=== PATIENT | male | born 1960 | race African-American/Black ===

== ENCOUNTER 2019-10-08 06:02 | Emergency (ER) | payer SELFPAY ==
[2019-10-08] MEDS ORDERED: NA CHLORIDE 0.9% 1,000 ML ONE (06:32)
[2019-10-08 06:47] LABS: Absolute Lymphocytes (CBC) 1.5 K/uL (0.7-4.9); Basophils % 0.3 % (0-1.3); Hematocrit 41.4 % (39.6-49.0); MPV 8.4 fL (7.6-11.3); RBC Red Blood Cell Count 4.53 M/uL (4.33-5.43)
[2019-10-08 06:55] LABS: Protime INR 1.04
[2019-10-08 07:16] LABS: ALT/SGPT 73 U/L (12-78); AST/SGOT 104 U/L (15-37); Albumin 4.1 g/dL (3.4-5.0); Alkaline Phosphatase 57 U/L (45-117); BUN Blood Urea Nitrogen 16 mg/dL (7-18); Bicarbonate 27 mmol/L (21-32); Bilirubin Direct 0.2 mg/dL (0-0.2); Bilirubin Total 0.5 mg/dL (0.2-1.0); Glucose Level 111 mg/dL (74-106); Lipase 194 U/L (73-393); Magnesium 2.8 mg/dL (1.8-2.4); NT PRO-BNP 1745 pg/mL (<125); Potassium 3.4 mmol/L (3.5-5.1); Protein, Total 7.9 g/dL (6.4-8.2); Sodium Level 143 mmol/L (136-145); Troponin (Emerg Dept Use Only) < 0.02 ng/mL (0.0-0.045)
--- NOTE | 2019-10-08 07:37 | RAD REPORT ---
EXAM DESCRIPTION: CT - Head Brain Wo Cont - 10/08/2019 7:05 am CLINICAL HISTORY: Head trauma, headache, laceration to right cheek and periorbital region COMPARISON: None. TECHNIQUE: Axial 5 mm thick images of the head were obtained without IV contrast. All CT scans are performed using dose optimization technique as appropriate and may include automated exposure control or mA/KV adjustment according to patient size. FINDINGS: No intracranial hemorrhage, mass, edema or shift of mid-line structures. No acute infarcti on changes seen. No abnormal extra-axial fluid collections. Ventricles are normal. No acute intracran ial finding seen. Mastoid air cells and visualized portions of the paranasal sinuses are clear. No acute bony findings. IMPRESSION: Negative non-contrast CT head examination for acute or significant finding.
--- NOTE | 2019-10-08 08:10 | RAD REPORT ---
EXAM DESCRIPTION: CT - Abdomen Pelvis Wo Contrast - 10/08/2019 7:53 am CLINICAL HISTORY: upper abd pain, anorexia COMPARISON: No comparisons TECHNIQUE: Axial [address] imaging of the abdomen and pelvis was performed without IV contrast. No IV contrast was given because of allergy, abnormal renal function, patient refusal or physician re quest. No oral contrast given. All CT scans are performed using dose optimization technique as appropriate and may include automated exposure control or mA/KV adjustment according to patient size. FINDINGS: No acute pleural or parenchymal lung base finding. Cardiomegaly is present with a moderate ly large pericardial effusion. Heart is only partially imaged. The liver, spleen and pancreas show no suspicious findings on non-contrast imaging. Gallbladder and b iliary tree are also without suspicious finding. Gallstones can be occult on CT imaging. No hydronephrosis or suspicious renal mass. No obstructing or nonobstructing calculi. No significant adrenal finding. Isodense renal masses and pyelonephritis cannot be excluded in the absence of IV con trast. The urinary bladder is without significant finding. No gastric dilatation or gastric wall thickening. No acute small bowel finding identifiable. The appe ndix is not clearly defined. No direct or indirect evidence for appendicitis. Much of the colon is fu lly decompressed with no lumen content. There is questionable wall thickening at the splenic flexure, proximal descending colon and in the transverse colon. Cecum and ascending colon are fully decompres sed and difficult to evaluate. No free air, free fluid or pneumatosis. There is a mild congested or edematous appearance to the pe ritoneal and retroperitoneal fatty tissues. Patient has a minimal fluid retention in the subcutaneous fatty tissues. No mass or bulky lymphadenopathy. No suspicious bony findings. IMPRESSION: No obstruction, free air or surgically emergent finding. Patient has a mild petty diverticulosis. There are questionable areas of wall thickening involving much of the colon. Colon assessment is limited in the absence of contrast in the absence bowel content th roughout much of the colon. Colitis would be a consideration given the findings and limitations of the study. No stomach or small bowel abnormality. Appendicitis is not suspected. Patient has a mild fluid retention pattern in the subcutaneous fatty tissues. Cardiomegaly is present with a moderate pericardial effusion. Full assessment is limited is the absence of IV contrast.
--- NOTE | 2019-10-08 08:49 | EDPHYS ---
Physician Documentation [facility] Name: Cristopher Dee Age: 59 yrs Sex: Male : 1960 Arrival Date: 10/08/2019 Time: 06:03 Bed 20 Private MD: ED Physician Joseph Piper HPI: 10/08 06:37 This 59 yrs old Black Male presents to ER via Unassigned with complaints of Cant eat or kb Drink. 06:37 The patient presents with generalized weakness. Onset: The symptoms/episode kb began/occurred last week. Context: occurred at home. Modifying factors: The symptoms are alleviated by nothing, the symptoms are aggravated by nothing. Associated signs and symptoms: Pertinent positives: anorexia. Severity of symptoms: At their worst the symptoms were moderate in the emergency department the symptoms are unchanged. Patient's baseline: Neuro: alert and fully oriented, Motor: no deficits, Ambulation: walks without assistance, Speech: normal. The patient has not experienced similar symptoms in the past. The patient has not recently seen a physician. Pt reports he has not eaten or drank anything in a week. Denies abd pain, n/v/d. States "I just haven't had anything. I don't know why." States he has felt weak and this morning he fell. Denies LOC. Reports history of depression only, but doesn't take his medication that he is prescribed. . Historical: - Allergies: 06:42 No Known Allergies; ca1 - PMHx: 06:42 Depression; Hypertension; Thyroid problem; ca1 - Immunization history:: Adult Immunizations up to date, Pneumococcal vaccine is not up to date, Flu vaccine is not up to date. - Social history:: Smoking status: Patient/guardian denies using tobacco. - Ebola Screening: : Patient negative for fever greater than or equal to 101.5 degrees Fahrenheit, and additional compatible Ebola Virus Disease symptoms Patient denies exposure to infectious person Patient denies travel to an Ebola-affected area in the 21 days before illness onset No symptoms or risks identified at this time. ROS: 06:37 Constitutional: Negative for fever, chills, and weight loss, ENT: Negative for injury, kb pain, and discharge, Neck: Negative for injury, pain, and swelling, Cardiovascular: Negative for chest pain, palpitations, and edema, Respiratory: Negative for shortness of breath, cough, wheezing, and pleuritic chest pain, Back: Negative for injury and pain, MS/Extremity: Negative for injury and deformity. 06:37 Abdomen/GI: Positive for anorexia, Negative for abdominal pain, nausea, vomiting, and diarrhea. 06:37 Skin: Positive for abrasion(s), of the forehead and right cheek. 06:37 Neuro: Positive for weakness. Exam: 06:37 Constitutional: This is a well developed, well nourished patient who is awake, alert, kb and in no acute distress. Chest/axilla: Normal chest wall appearance and motion. Nontender with no deformity. No lesions are appreciated. Cardiovascular: Regular rate and rhythm with a normal S1 and S2. No gallops, murmurs, or rubs. Normal PMI, no JVD. No pulse deficits. Respiratory: Lungs have equal breath sounds bilaterally, clear to auscultation and percussion. No rales, rhonchi or wheezes noted. No increased work of breathing, no retractions or nasal flaring. Back: No spinal tenderness. No costovertebral tenderness. Full range of motion. MS/ Extremity: Pulses equal, no cyanosis. Neurovascular intact. Full, normal range of motion. Neuro: Awake and alert, GCS 15, oriented to person, place, time, and situation. Cranial nerves II-XII grossly intact. Motor strength 5/5 in all extremities. Sensory grossly intact. Cerebellar exam normal. Normal gait. 06:37 Head/face: Noted is no obvious of injury or deformity except abrasion(s), that are mild, of the forehead and right cheek. 06:37 Abdomen/GI: Inspection: abdomen appears normal, Bowel sounds: normal, in all quadrants, Palpation: soft, in all quadrants, moderate abdominal tenderness, in the right upper quadrant and left upper quadrant. Vital Signs: 06:12 BP 130 / 107; Pulse 90; Resp 19 S; Pulse Ox 100% on R/A; Weight 68.04 kg (R); Height 5 ca1 ft. 8 in. (172.72 cm) (R); Pain 5/10; 07:00 Temp 97.7; sg 10:28 BP 150 / 97; Pulse 79; Resp 18; Temp 97.7; Pulse Ox 100% on R/A; sg 06:12 Body Mass Index 22.81 (68.04 kg, 172.72 cm) ca1 MDM: 06:11 Patient medically screened. kb 06:36 Data reviewed: vital signs, nurses notes. Data interpreted: Pulse oximetry: on room air kb is 100 %. Interpretation: normal. 08:42 Counseling: I had a detailed discussion with the patient and/or guardian regarding: the kb historical points, exam findings, and any diagnostic results supporting the discharge/admit diagnosis, lab results, radiology results, the need for further work-up and treatment in the hospital. 08:45 Physician consultation: Mark Russo DO was contacted at 08:45, regarding admission, kb to the telemetry unit. patient's condition, and will see patient in ED, shortly. 09:17 ED course: Dr Russo requests transfer due to large pericardial effusion. We have no kb echo available and no interventions available for pericardial effusion if needed. 09:29 ED course: Gurpreet Correa (hospitalist for [facility]) accepted pt for transfer. . kb 10/08 06:17 Order name: Basic Metabolic Panel; Complete Time: 07:17 kb 10/08 06:17 Order name: CBC with Diff; Complete Time: 06:55 kb 10/08 06:17 Order name: LFT's; Complete Time: 07:17 kb 10/08 06:17 Order name: Magnesium; Complete Time: 07:17 kb 10/08 06:17 Order name: NT PRO-BNP; Complete Time: 07:17 kb 10/08 06:17 Order name: PT-INR; Complete Time: 07:08 kb 10/08 06:17 Order name: Troponin (emerg Dept Use Only); Complete Time: 07:17 kb 10/08 06:17 Order name: Lipase; Complete Time: 07:17 kb 10/08 06:23 Order name: CT Head Brain wo Cont; Complete Time: 07:38 kb 10/08 07:18 Order name: CT Abd/Pelvis - Without Contrast; Complete Time: 08:12 kb 10/08 08:14 Order name: Chest Single View XRAY; Complete Time: 10:52 kb 10/08 06:17 Order name: EKG; Complete Time: 06:18 kb 10/08 06:17 Order name: Cardiac monitoring; Complete Time: 06:37 kb 10/08 06:17 Order name: EKG - Nurse/Tech; Complete Time: 06:37 kb 10/08 06:17 Order name: IV Saline Lock; Complete Time: 06:37 kb 10/08 06:17 Order name: Labs collected and sent; Complete Time: 06:37 kb 10/08 06:17 Order name: O2 Per Protocol; Complete Time: 06:37 kb 10/08 06:17 Order name: O2 Sat Monitoring; Complete Time: 06:37 kb 10/08 08:14 Order name: EKG; Complete Time: 08:15 kb 10/08 08:14 Order name: EKG - Nurse/Tech; Complete Time: 08:28 kb Administered Medications: 06:25 Drug: NS 0.9% 1000 ml Route: IV; Rate: 1000 ml; Site: right antecubital; ca1 07:30 Follow up: Response: No adverse reaction; IV Status: Completed infusion; IV Intake: sg 1000ml 09:30 Drug: Tetanus-Diphtheria Toxoid Adult 0.5 ml {Brusher Machine: videoNEXT. Exp: 09/05/2021. Lot #: [id number]. } Route: IM; Site: right deltoid; 10:33 Follow up: Response: No adverse reaction sg 10:33 Drug: Potassium Chloride 20 mEq Route: PO; sg 10:52 Follow up: Response: No adverse reaction Disposition: 10/09 07:28 Co-signature as Attending Physician, Joseph Piper MD I agree with the assessment and kdr plan of care. Disposition: 10/08/19 09:[address] [facility]. Diagnosis are Pericardial effusion (noninflammatory), Dehydration, Colitis. - Reason for transfer: Higher level of care. - Accepting physician is Dr Ernandez. - Condition is Stable. - Problem is new. - Symptoms are unchanged. Signatures: Dispatcher [employer] Nelli Azul, BETO GONGORA-Heriberto Arriaag RN Joseph Barrera MD MD kdr Acob, Cheryl RN RN ca1 Corrections: (The following items were deleted from the chart) 10/08 08:56 08:47 Hospitalization Ordered by Mark Russo DO for Observation. Preliminary kb diagnosis is Weakness; Colitis; Pericardial effusion (noninflammatory); Renal insufficiency. Bed requested for Telemetry/MedSurg (observation). Status is Observation. Condition is Stable. Problem is new. Symptoms are unchanged. UTI on Admission? No. kb 11:30 09:34 10/08/2019 09:[address] [facility]. Diagnosis is sg Pericardial effusion (noninflammatory); Dehydration; Colitis. Reason for transfer: Higher level of care. Accepting physician is Dr Ernandez. Condition is Stable. Problem is new. Symptoms are unchanged. kb
--- NOTE | 2019-10-08 08:49 | ER ---
Nurse's Notes [facility] Name: Cristopher Dee Age: 59 yrs Sex: Male : 1960 Arrival Date: 10/08/2019 Time: 06:03 Bed 20 Private MD: Diagnosis: Pericardial effusion (noninflammatory);Dehydration;Colitis Presentation: 10/08 06:12 Presenting complaint: Patient states: "couple days I did not eat or drink and I don't ca1 know why. Right now I am very hungry and very thirsty" Pt c/o abdl pain, upper R and L. 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 Pt denies tripping and father at bedside states, "I found him on the floor". When asked about the fall, pt denies LOC and states he just felt very weak. Pt denies N/V/F. Reports MHx of Depression and non-compliance to medications. Transition of care: patient was not received from another setting of care. Onset of symptoms was October 08, 2019. Risk Assessment: Do you want to hurt yourself or someone else? Patient reports no desire to harm self or others. Initial Sepsis Screen: Does the patient meet any 2 criteria? No. Patient's initial sepsis screen is negative. Does the patient have a suspected source of infection? No. Patient's initial sepsis screen is negative. Care prior to arrival: None. 06:12 Method Of Arrival: Wheelchair ca1 06:12 Acuity: FRANCHESCA 3 ca1 Triage Assessment: 06:12 General: Appears in no apparent distress. uncomfortable, slender, Behavior is anxious, ca1 crying, Reports fatigue for >3 days. Pain: Complains of pain in right upper quadrant and left upper quadrant Pain currently is 5 out of 10 on a pain scale. Is continuous. EENT: No deficits noted. No signs and/or symptoms were reported regarding the EENT system. Neuro: Level of Consciousness is awake, alert, obeys commands, Oriented to person, place, time, situation, Appropriate for age. Cardiovascular: Heart tones S1 S2 present Capillary refill < 3 seconds Patient's skin is warm and dry. Respiratory: Airway is patent Respiratory effort is even, unlabored, Respiratory pattern is regular, symmetrical, Breath sounds are clear bilaterally. GI: Abdomen is flat, non-distended, Bowel sounds present X 4 quads. Abd is soft X 4 quads Abdomen is tender to palpation in right upper quadrant and left upper quadrant. : No deficits noted. No signs and/or symptoms were reported regarding the genitourinary system. Derm: Skin is healthy with good turgor, Skin is pink, warm \\T\\ dry. Musculoskeletal: Circulation, motion, and sensation intact. Capillary refill < 3 seconds. Injury Description: Abrasion sustained to forehead, right cheek and right pentecostalism is dirty, was sustained less than 30 minutes ago. Historical: - Allergies: 06:42 No Known Allergies; ca1 - PMHx: 06:42 Depression; Hypertension; Thyroid problem; ca1 - Immunization history:: Adult Immunizations up to date, Pneumococcal vaccine is not up to date, Flu vaccine is not up to date. - Social history:: Smoking status: Patient/guardian denies using tobacco. - Ebola Screening: : Patient negative for fever greater than or equal to 101.5 degrees Fahrenheit, and additional compatible Ebola Virus Disease symptoms Patient denies exposure to infectious person Patient denies travel to an Ebola-affected area in the 21 days before illness onset No symptoms or risks identified at this time. Screenin:46 Abuse screen: Denies threats or abuse. Denies injuries from another. Nutritional ca1 screening: No deficits noted. Tuberculosis screening: No symptoms or risk factors identified. Fall Risk Fall in past 12 months (25 points). IV access (20 points). Assessment: 06:46 Reassessment: SEE TRIAGE ASSESSMENT. ca1 07:02 Reassessment: Patient appears in no apparent distress at this time. Patient and/or sg family updated on plan of care and expected duration. Pain level reassessed. pt requesting water, ERP instructs pt to wait for results of CT scan prior to eating or drinking, more glycerin swab applied to pt for dry mouth, pt stated understanding. 09:54 Reassessment: Patient appears in no apparent distress at this time. pt updated attempt sg to call report to receiving nurse, instructed to call back in 5 mins while they assign a nurse for the pt, pt stated understanding, will call back to give report. 10:30 Reassessment: Patient appears in no apparent distress at this time. Spoke with sg Elisa COBIAN for pt report, Elisa requests a call back to finish report, pt to be transferred. 11:18 Reassessment:. sg Vital Signs: 06:12 BP 130 / 107; Pulse 90; Resp 19 S; Pulse Ox 100% on R/A; Weight 68.04 kg (R); Height 5 ca1 ft. 8 in. (172.72 cm) (R); Pain 5/10; 07:00 Temp 97.7; sg 10:28 BP 150 / 97; Pulse 79; Resp 18; Temp 97.7; Pulse Ox 100% on R/A; sg 06:12 Body Mass Index 22.81 (68.04 kg, 172.72 cm) ca1 ED Course: 06:03 Patient arrived in ED. ds1 06:07 Nelli Celis [facility]C [facility]. kb 06:07 Joseph Piper MD is Attending Physician. kb 06:10 Obdulia Shell, RN is Primary Nurse. ca1 06:12 Arm band placed on right wrist. ca1 06:12 EKG completed in triage. Results shown to MD. ca1 06:20 No provider procedures requiring assistance completed. Inserted saline lock: 22 gauge ca1 in right antecubital area, using aseptic technique. Blood collected. 06:42 Triage completed. ca1 06:46 Patient has correct armband on for positive identification. Bed in low position. Call ca1 light in reach. Side rails up X2. radiation monitor on. Pulse ox on. NIBP on. Warm blanket given. 07:07 CT Head Brain wo Cont In Process Unspecified. EDMS 07:34 Primary Nurse role handed off by Obdulia Shell, ARANZA bd 07:42 Heriberto Fernandez, RN is Primary Nurse. sg 07:53 CT completed. Patient tolerated procedure well. Patient moved back from CT. bq 07:53 CT Abd/Pelvis - Without Contrast In Process Unspecified. EDMS 08:31 Chest Single View XRAY In Process Unspecified. EDMS 08:46 Mark Russo DO is Hospitalizing Provider. kb 09:04 Wound care: to abrasion, located on forehead, right eye and right cheek was cleaned sg with soap and water, dressed with Neosporin. 11:30 Patient transferred, IV remains in place. iw Administered Medications: 06:25 Drug: NS 0.9% 1000 ml Route: IV; Rate: 1000 ml; Site: right antecubital; ca1 07:30 Follow up: Response: No adverse reaction; IV Status: Completed infusion; IV Intake: sg 1000ml 09:30 Drug: Tetanus-Diphtheria Toxoid Adult 0.5 ml {Deaf Interpreter: Xierkang. Exp: sg 09/05/2021. Lot #: [id number]. } Route: IM; Site: right deltoid; 10:33 Follow up: Response: No adverse reaction sg 10:33 Drug: Potassium Chloride 20 mEq Route: PO; sg 10:52 Follow up: Response: No adverse reaction sg Intake: 07:30 IV: 1000ml; Total: 1000ml. sg Outcome: 08:47 Decision to Hospitalize by Provider. kb 09:34 ER care complete, transfer ordered by MD. kb 11:20 Transferred by ground EMS to [facility], Transfer form completed. sg 11:20 Condition: stable 11:20 Instructed on the need for transfer, Demonstrated understanding of instructions, report given to Jhon COBIAN 11:30 Patient left the ED. sg Signatures: Dispatcher [employer] EDMS Nelli Celis, MANAGER BANQUET-C MANAGER BANQUET-Ckb Serenity Freeman Steven, RN RN sg Margarita Garcia Demi ds1 Jana Paula, RN ARANZA Obdulia Shell RN RN ca1
[2019-10-08] MEDS ORDERED: TETANUS & DIPHTHERIA TOX,ADULT 0.5 ML VIAL ONE (10:00)
[2019-10-08] MEDS ORDERED: POTASSIUM CL SA 10 MEQ TAB PO ONE (10:40)
--- NOTE | 2019-10-08 10:49 | RAD REPORT ---
EXAM DESCRIPTION: RAD - Chest Single View - 10/08/2019 8:34 am CLINICAL HISTORY: Pericardial effusion, abdominal pain, shortness of breath COMPARISON: None. TECHNIQUE: AP portable chest image was obtained 0830 hours . FINDINGS: No focal lung parenchymal process seen. Interstitial pattern is within range of normal. Tr achea is midline. Cardiac silhouette is enlarged. Earlier CT study shows pericardial effusion. Patien t has a component of cardiomegaly as well. No vascular engorgement or other findings for failure/ vol ume overload. No measurable pleural effusion and no pneumothorax. No acute bony abnormality seen. No acute aortic findings suspected. IMPRESSION: Cardiomegaly with pericardial effusion. No failure or volume overload findings. No focal lung process.
[2019-10-08 11:37] VITALS: O2SAT 100
[2019-10-08 11:38] VITALS: TEMP 97.7
[2019-10-08 11:40] VITALS: BP 150/97
--- NOTE | 2019-10-08 18:36 | EKG ---
Test Date: 2019-10-08 Test Time: 08:24:31 Graphic Manager: SWG MEASUREMENT RESULTS: Intervals: Rate: 83 NH: 150 QRSD: 174 QT: 470 QTc: 552 [place]: P: 50 NH: 150 QRS: 76 T: -50 INTERPRETIVE STATEMENTS: Normal sinus rhythm Left bundle branch block Abnormal ECG No previous ECG available for comparison Electronically Signed On 10-08-19 18:35:12 PATENT AGENT by Tommy West
--- NOTE | 2019-10-08 18:36 | EKG ---
Test Date: 2019-10-08 Test Time: 06:20:47 Supervisor Case Loading: LIANNA MEASUREMENT RESULTS: Intervals: Rate: 88 ID: [id number] QT: 452 QTc: 546 [place]: P: ID: [id number] T: -12 INTERPRETIVE STATEMENTS: Wide QRS rhythm Left bundle branch block Abnormal ECG No previous ECG available for comparison Electronically Signed On 10-08-19 18:35:15 MANAGER LOSS PREVENTION by Tommy West
== END 2019-10-08 11:30 | disposition short-term general hospital (02) ==
LOC: ER 06:02
DX: I31.3 Pericardial effusion (noninflammatory) (principal); E86.0 Dehydration; K52.9 Noninfective gastroenteritis and colitis, unspecified; I10 Essential (primary) hypertension; Z23 Encounter for immunization
CPT/HCPCS: 36415; 70450; 71045; 74176; 80048; 80076; 83690; 83735; 83880; 84484; 85025; 85610; 90471; 90714; 93005; 96360; 99285; J7030

== ENCOUNTER 2021-03-28 17:07 | Emergency (ER) | payer OTHER, SELFPAY ==
--- OUTSIDE RECORDS SUMMARY | 2021-03-28 17:11 | XMS REPORT | Continuity of Care Document ---
:1960 Author Organization [facility] t Address [address] [place] [address] Care Team Providers Name Role Phone Urbano RODRIGUEZ Attending Clinician Unavailable ANI ADAM Admitting Clinician Unavailable Problems Condition Condition Condition Status Onset Resolution Last Treating Co mments Source Name Details Category Date Date Treatment Clinician Date Pericardia Pericardia Disease Active [facility]usion l effusion 10-11 [facility] - 00:00: Medical 00 Anza Dehydratio Dehydratio Disease Active [facility] Allergies, Adverse Reactions, Alerts This patient has no known allergies or adverse reactions. Social History Social Habit Start Date Stop Date Quantity Comments Source Sex Assigned At [facility] Medications Ordered Filled Start Stop Current Ordering Indication Dosage Frequency Signature Comments Components Source Medication Medication Date Date Medication? Clinician (SIG) Name Name levothyroxi 2020- No 150ug Take [address] [facility] 10-25 tablet [facility] - (SYNTHROID, 00:00: 23:59 (150 mcg M edical LEVOTHROID) 00 :00 total) by [facility] ter 150 MCG mouth tablet Every morning on an empty stomach. metoprolol 2020- No 25mg QD Take 1 [facility] (TOPROL-XL) 10-25 tablet (25 L [facility] - 25 MG 24 hr 00:00: 23:59 mg total) Medical tablet 00 :00 by mouth Center daily. Procedures This patient has no known procedures. Plan of Care Planned Activity Planned Date Details Comments Source Future Scheduled 2021-06-08 INFLUENZA VACCINE [facility] - Test 00:00:00 (Season Ended) [code Medical Center = INFLUENZA VACCINE (Season Ended)] Future Scheduled 2020-10-[address] [facility] - Test 00:00:00 (12+) [code = Medical Center DEPRESSION SCREENING (12+)] Future Scheduled 2017-08-[address] [facility] [facility] - Test 00:00:00 WELLNESS (YEAR 2 or Medical Center FIRST YEAR if no IPPE) [code = MEDICARE ANNUAL WELLNESS (YEAR 2 or FIRST YEAR if no IPPE)] Future Scheduled 2012 SHINGLES VACCINES ([address] [facility] - Test 00:00:00 of 2) [code = Medical Center SHINGLES VACCINES (1 of 2)] Future Scheduled [address] [facility] Test 00:00:00 (procedure) [code = [facility] [id number]] Future Scheduled 1981 DTAP/TDAP/TD VACCINES [facility] Test 00:[facility]:00 (1 - Tdap) [code = Medical C enter DTAP/TDAP/TD VACCINES (1 - Tdap)] Future Scheduled 1980 HEPATITIS C [facility]CREENING [facility] - Test 00:00:00 [code = HEPATITIS C Medical Center SCREENING] Future Scheduled [address] [facility] - Test 00:00:00 malignant neoplasm of Medica l Center colon (procedure) [code = 632917741] Results Test Description Test Time Test Comments Results Result Comments Source T4, FREE 2019-10-24 10:35:00 Test Item Value Reference Range Interpretation Comme nts FREE T4 (BEAKER) (test code = 655) 0.87 ng/dL 0.70-1.48 Senior Production Manager ID - NTPBASIC METABOLIC [id number] 07:35:00 Test Item Value Reference Range Interpretation Comments SODIUM (BEAKER) 141 meq/L 136-145 (test code = 381) POTASSIUM (BEAKER) 3.7 meq/L 3.5-5.1 (test code = 379) CHLORIDE (BEAKER) 110 meq/L 98-107 H (test code = 382) CO2 (BEAKER) (test 27 meq/L 22-29 code = 355) BLOOD UREA NITROGEN 15 mg/dL 7-21 (BEAKER) (test code = 354) CREATININE (BEAKER) 1.11 mg/dL 0.57-1.25 (test code = 358) GLUCOSE RANDOM 67 mg/dL 70-105 L (BEAKER) (test code = 652) CALCIUM (BEAKER) 8.1 mg/dL 8.4-10.2 L (test code = 697) EGFR (BEAKER) (test 83 mL/min/1.73 ESTIMA JAMIE GFR IS code = 1092) sq m NOT ACCURATE CREATININE CLEARANCE IN PREDICTING GLOMERULAR FILTRATION RATE . ESTIMATED GFR I S NOT APPLICABLE FOR DIALYSIS PATIEN TS. Senior Production Manager ID - MARY LOU WCBC (HEMOGRAM ONLY)2019-10-24 06:50:00 Test Item Value Reference Range Interpretation Comments WHITE BLOOD CELL COUNT (BEAKER) 3.6 K/ L 3.5-10.5 (test code = 775) RED BLOOD CELL COUNT (BEAKER) 3.01 M/ L 4.63-6.08 L (test code = 761) HEMOGLOBIN (BEAKER) (test code = 9.1 GM/DL 13.7-17.5 L 410) HEMATOCRIT (BEAKER) (test code = 28.3 % 40.1-51.0 L 411) MEAN CORPUSCULAR VOLUME (BEAKER) 94.0 fL 79.0-92.2 H (test code = 753) MEAN CORPUSCULAR HEMOGLOBIN 30.2 pg 25.7-32.2 (BEAKER) (test code = 751) MEAN CORPUSCULAR HEMOGLOBIN CONC 32.2 GM/DL 32.3-36.5 L (BEAKER) (test code = 752) RED CELL DISTRIBUTION WIDTH 15.8 % 11.6-14.4 H (BEAKER) (test code = 412) PLATELET COUNT (BEAKER) (test 248 K/CU MM 150-450 code = 756) MEAN PLATELET VOLUME (BEAKER) 9.5 fL 9.4-12.4 (test code = 754) NUCLEATED RED BLOOD CELLS 0 /100 WBC 0-0 (BEAKER) (test code = 413) BASIC METABOLIC [id number] 07:15:00 Test Item Value Reference Range Interpretation Comments SODIUM (BEAKER) 139 meq/L 136-145 (test code = 381) POTASSIUM (BEAKER) 3.9 meq/L 3.5-5.1 (test code = 379) CHLORIDE (BEAKER) 108 meq/L 98-107 H (test code = 382) CO2 (BEAKER) (test 27 meq/L 22-29 code = 355) BLOOD UREA NITROGEN 13 mg/dL 7-21 (BEAKER) (test code = 354) CREATININE (BEAKER) 1.06 mg/dL 0.57-1.25 (test code = 358) GLUCOSE RANDOM 62 mg/dL 70-105 L (BEAKER) (test code = 652) CALCIUM (BEAKER) 7.8 mg/dL 8.4-10.2 L (test code = 697) EGFR (BEAKER) (test 87 mL/min/1.73 ESTIMA JAMIE GFR IS code = 1092) sq m NOT ACCURATE CREATININE CLEARANCE IN PREDICTING GLOMERULAR FILTRATION RATE . ESTIMATED GFR I S NOT APPLICABLE FOR DIALYSIS PATIEN TS. Senior Production Manager ID - PIAYA LCBC (HEMOGRAM ONLY)2019-10-23 06:28:00 Test Item Value Reference Range Interpretation Comments WHITE BLOOD CELL COUNT (BEAKER) 3.5 K/ L 3.5-10.5 (test code = 775) RED BLOOD CELL COUNT (BEAKER) 3.17 M/ L 4.63-6.08 L (test code = 761) HEMOGLOBIN (BEAKER) (test code = 9.5 GM/DL 13.7-17.5 L 410) HEMATOCRIT (BEAKER) (test code = 30.0 % 40.1-51.0 L 411) MEAN CORPUSCULAR VOLUME (BEAKER) 94.6 fL 79.0-92.2 H (test code = 753) MEAN CORPUSCULAR HEMOGLOBIN 30.0 pg 25.7-32.2 (BEAKER) (test code = 751) MEAN CORPUSCULAR HEMOGLOBIN CONC 31.7 GM/DL 32.3-36.5 L (BEAKER) (test code = 752) RED CELL DISTRIBUTION WIDTH 15.8 % 11.6-14.4 H (BEAKER) (test code = 412) PLATELET COUNT (BEAKER) (test 235 K/CU MM 150-450 code = 756) MEAN PLATELET VOLUME (BEAKER) 9.3 fL 9.4-12.4 L (test code = 754) NUCLEATED RED BLOOD CELLS 0 /100 WBC 0-0 (BEAKER) (test code = 413) BASIC METABOLIC [id number] 06:21:00 Test Item Value Reference Range Interpretation Comments SODIUM (BEAKER) 141 meq/L 136-145 (test code = 381) POTASSIUM (BEAKER) 4.0 meq/L 3.5-5.1 (test code = 379) CHLORIDE (BEAKER) 109 meq/L 98-107 H (test code = 382) CO2 (BEAKER) (test 27 meq/L 22-29 code = 355) BLOOD UREA NITROGEN 15 mg/dL 7-21 (BEAKER) (test code = 354) CREATININE (BEAKER) 1.34 mg/dL 0.57-1.25 H (test code = 358) GLUCOSE RANDOM 77 mg/dL 70-105 (BEAKER) (test code = 652) CALCIUM (BEAKER) 8.1 mg/dL 8.4-10.2 L (test code = 697) EGFR (BEAKER) (test 67 mL/min/1.73 ESTIMA JAMIE GFR IS code = 1092) sq m NOT ACCURATE CREATININE CLEARANCE IN PREDICTING GLOMERULAR FILTRATION RATE . ESTIMATED GFR I S NOT APPLICABLE FOR DIALYSIS PATIEN TS. Senior Production Manager ID - SHANE MCBC (HEMOGRAM ONLY)2019-10-19 05:32:00 Test Item Value Reference Range Interpretation Comments WHITE BLOOD CELL COUNT (BEAKER) 3.7 K/ L 3.5-10.5 (test code = 775) RED BLOOD CELL COUNT (BEAKER) 3.08 M/ L 4.63-6.08 L (test code = 761) HEMOGLOBIN (BEAKER) (test code = 9.3 GM/DL 13.7-17.5 L 410) HEMATOCRIT (BEAKER) (test code = 29.0 % 40.1-51.0 L 411) MEAN CORPUSCULAR VOLUME (BEAKER) 94.2 fL 79.0-92.2 H (test code = 753) MEAN CORPUSCULAR HEMOGLOBIN 30.2 pg 25.7-32.2 (BEAKER) (test code = 751) MEAN CORPUSCULAR HEMOGLOBIN CONC 32.1 GM/DL 32.3-36.5 L (BEAKER) (test code = 752) RED CELL DISTRIBUTION WIDTH 15.6 % 11.6-14.4 H (BEAKER) (test code = 412) PLATELET COUNT (BEAKER) (test 238 K/CU MM 150-450 code = 756) MEAN PLATELET VOLUME (BEAKER) 9.4 fL 9.4-12.4 (test code = 754) NUCLEATED RED BLOOD CELLS 0 /100 WBC 0-0 (BEAKER) (test code = 413) [id number] 15:31:00 Test Item Value Reference Range Interpretation Comments T3 TOTAL (BEAKER) (test code = 656) < ng/dL 48-159 L T3, [id number] 15:31:00 Test Item Value Reference Range Interpretation Comments T3 FREE (BEAKER) (test code = 908) < pg/mL 1.71-3.71 L T4, [id number] 06:48:00 Test Item Value Reference Range Interpretation Comments FREE T4 (BEAKER) (test code = 655) 0.44 ng/dL 0.70-1.48 L [id number] 08:21:00 Test Item Value Reference Range Interpretation Comments MAGNESIUM (BEAKER) (test code = 2.4 mg/dL 1.6-2.6 627) BASIC METABOLIC [id number] 08:21:00 Test Item Value Reference Range Interpretation Comments SODIUM (BEAKER) 138 meq/L 136-145 (test code = 381) POTASSIUM (BEAKER) 3.6 meq/L 3.5-5.1 (test code = 379) CHLORIDE (BEAKER) 107 meq/L 98-107 (test code = 382) CO2 (BEAKER) (test 25 meq/L 22-29 code = 355) BLOOD UREA NITROGEN 11 mg/dL 7-21 (BEAKER) (test code = 354) CREATININE (BEAKER) 1.21 mg/dL 0.57-1.25 (test code = 358) GLUCOSE RANDOM 61 mg/dL 70-105 L (BEAKER) (test code = 652) CALCIUM (BEAKER) 8.4 mg/dL 8.4-10.2 (test code = 697) EGFR (BEAKER) (test 75 mL/min/1.73 ESTIMA JAMIE GFR IS code = 1092) sq m NOT ACCURATE CREATININE CLEARANCE IN PREDICTING GLOMERULAR FILTRATION RATE . ESTIMATED GFR I S NOT APPLICABLE FOR DIALYSIS PATIEN TS. CBC W/PLT COUNT & AUTO [id number] 08:20:00 Test Item Value Reference Range Interpretation Comments WHITE BLOOD CELL COUNT (BEAKER) 4.0 K/ L 3.5-10.5 (test code = 775) RED BLOOD CELL COUNT (BEAKER) 3.61 M/ L 4.63-6.08 L (test code = 761) HEMOGLOBIN (BEAKER) (test code = 10.7 GM/DL 13.7-17.5 L 410) HEMATOCRIT (BEAKER) (test code = 32.8 % 40.1-51.0 L 411) MEAN CORPUSCULAR VOLUME (BEAKER) 90.9 fL 79.0-92.2 (test code = 753) MEAN CORPUSCULAR HEMOGLOBIN 29.6 pg 25.7-32.2 (BEAKER) (test code = 751) MEAN CORPUSCULAR HEMOGLOBIN CONC 32.6 GM/DL 32.3-36.5 (BEAKER) (test code = 752) RED CELL DISTRIBUTION WIDTH 15.2 % 11.6-14.4 H (BEAKER) (test code = 412) PLATELET COUNT (BEAKER) (test 207 K/CU MM 150-450 code = 756) MEAN PLATELET VOLUME (BEAKER) 9.6 fL 9.4-12.4 (test code = 754) NUCLEATED RED BLOOD CELLS 0 /100 WBC 0-0 (BEAKER) (test code = 413) NEUTROPHILS RELATIVE PERCENT 42 % (BEAKER) (test code = 429) LYMPHOCYTES RELATIVE PERCENT 48 % (BEAKER) (test code = 430) MONOCYTES RELATIVE PERCENT 8 % (BEAKER) (test code = 431) EOSINOPHILS RELATIVE PERCENT 1 % (BEAKER) (test code = 432) BASOPHILS RELATIVE PERCENT 1 % (BEAKER) (test code = 437) NEUTROPHILS ABSOLUTE COUNT 1.67 K/ L 1.78-5.38 L (BEAKER) (test code = 670) LYMPHOCYTES ABSOLUTE COUNT 1.93 K/ L 1.32-3.57 (BEAKER) (test code = 414) MONOCYTES ABSOLUTE COUNT (BEAKER) 0.30 K/ L 0.30-0.82 (test code = 415) EOSINOPHILS ABSOLUTE COUNT 0.05 K/ L 0.04-0.54 (BEAKER) (test code = 416) BASOPHILS ABSOLUTE COUNT (BEAKER) 0.03 K/ L 0.01-0.08 (test code = 417) IMMATURE GRANULOCYTES-RELATIVE 0 % 0-1 PERCENT (BEAKER) (test code = 2801) T4, [id number] 12:06:00 Test Item Value Reference Range Interpretation Comments FREE T4 (BEAKER) (test code = 655) 0.59 ng/dL 0.70-1.48 L Both TSH and [id number] T4 IF [id number] 11:53:00 Test Item Value Reference Range Interpretation Comments THYROID STIMULATING HORMONE 24.61 uIU/mL 0.35-4.94 H (BEAKER) (test code = 772) Both TSH and [id number] 10:52:00 Test Item Value Reference Range Interpretation Comments MAGNESIUM (BEAKER) (test code = 2.0 mg/dL 1.6-2.6 627) BASIC METABOLIC [id number] 10:52:00 Test Item Value Reference Range Interpretation Comments SODIUM (BEAKER) 138 meq/L 136-145 (test code = 381) POTASSIUM (BEAKER) 3.8 meq/L 3.5-5.1 (test code = 379) CHLORIDE (BEAKER) 108 meq/L 98-107 H (test code = 382) CO2 (BEAKER) (test 24 meq/L 22-29 code = 355) BLOOD UREA NITROGEN 14 mg/dL 7-21 (BEAKER) (test code = 354) CREATININE (BEAKER) 1.35 mg/dL 0.57-1.25 H (test code = 358) GLUCOSE RANDOM 67 mg/dL 70-105 L (BEAKER) (test code = 652) CALCIUM (BEAKER) 8.1 mg/dL 8.4-10.2 L (test code = 697) EGFR (BEAKER) (test 66 mL/min/1.73 ESTIMA JAMIE GFR IS code = 1092) sq m NOT ACCURATE CREATININE CLEARANCE IN PREDICTING GLOMERULAR FILTRATION RATE . ESTIMATED GFR I S NOT APPLICABLE FOR DIALYSIS PATIEN TS. CBC W/PLT COUNT & AUTO [id number] 10:34:00 Test Item Value Reference Range Interpretation Comments WHITE BLOOD CELL COUNT (BEAKER) 4.1 K/ L 3.5-10.5 (test code = 775) RED BLOOD CELL COUNT (BEAKER) 3.47 M/ L 4.63-6.08 L (test code = 761) HEMOGLOBIN (BEAKER) (test code = 10.2 GM/DL 13.7-17.5 L 410) HEMATOCRIT (BEAKER) (test code = 31.6 % 40.1-51.0 L 411) MEAN CORPUSCULAR VOLUME (BEAKER) 91.1 fL 79.0-92.2 (test code = 753) MEAN CORPUSCULAR HEMOGLOBIN 29.4 pg 25.7-32.2 (BEAKER) (test code = 751) MEAN CORPUSCULAR HEMOGLOBIN CONC 32.3 GM/DL 32.3-36.5 (BEAKER) (test code = 752) RED CELL DISTRIBUTION WIDTH 15.4 % 11.6-14.4 H (BEAKER) (test code = 412) PLATELET COUNT (BEAKER) (test 195 K/CU MM 150-450 code = 756) MEAN PLATELET VOLUME (BEAKER) 9.3 fL 9.4-12.4 L (test code = 754) NUCLEATED RED BLOOD CELLS 0 /100 WBC 0-0 (BEAKER) (test code = 413) NEUTROPHILS RELATIVE PERCENT 49 % (BEAKER) (test code = 429) LYMPHOCYTES RELATIVE PERCENT 42 % (BEAKER) (test code = 430) MONOCYTES RELATIVE PERCENT 7 % (BEAKER) (test code = 431) EOSINOPHILS RELATIVE PERCENT 1 % (BEAKER) (test code = 432) BASOPHILS RELATIVE PERCENT 1 % (BEAKER) (test code = 437) NEUTROPHILS ABSOLUTE COUNT 1.99 K/ L 1.78-5.38 (BEAKER) (test code = 670) LYMPHOCYTES ABSOLUTE COUNT 1.70 K/ L 1.32-3.57 (BEAKER) (test code = 414) MONOCYTES ABSOLUTE COUNT (BEAKER) 0.29 K/ L 0.30-0.82 L (test code = 415) EOSINOPHILS ABSOLUTE COUNT 0.05 K/ L 0.04-0.54 (BEAKER) (test code = 416) BASOPHILS ABSOLUTE COUNT (BEAKER) 0.02 K/ L 0.01-0.08 (test code = 417) IMMATURE GRANULOCYTES-RELATIVE 0 % 0-1 PERCENT (BEAKER) (test code = 2801) [id number] 05:37:00 Test Item Value Reference Range Interpretation Comments MAGNESIUM (BEAKER) (test code = 2.4 mg/dL 1.6-2.6 627) BASIC METABOLIC [id number] 05:37:00 Test Item Value Reference Range Interpretation Comments SODIUM (BEAKER) 137 meq/L 136-145 (test code = 381) POTASSIUM (BEAKER) 4.0 meq/L 3.5-5.1 (test code = 379) CHLORIDE (BEAKER) 109 meq/L 98-107 H (test code = 382) CO2 (BEAKER) (test 22 meq/L 22-29 code = 355) BLOOD UREA NITROGEN 22 mg/dL 7-21 H (BEAKER) (test code = 354) CREATININE (BEAKER) 1.64 mg/dL 0.57-1.25 H (test code = 358) GLUCOSE RANDOM 72 mg/dL 70-105 (BEAKER) (test code = 652) CALCIUM (BEAKER) 8.4 mg/dL 8.4-10.2 (test code = 697) EGFR (BEAKER) (test 53 mL/min/1.73 ESTIMA JAMIE GFR IS code = 1092) sq m NOT ACCURATE CREATININE CLEARANCE IN PREDICTING GLOMERULAR FILTRATION RATE . ESTIMATED GFR I S NOT APPLICABLE FOR DIALYSIS PATIEN TS. CBC W/PLT COUNT & AUTO [id number] 05:00:00 Test Item Value Reference Range Interpretation Comments WHITE BLOOD CELL COUNT (BEAKER) 4.3 K/ L 3.5-10.5 (test code = 775) RED BLOOD CELL COUNT (BEAKER) 3.62 M/ L 4.63-6.08 L (test code = 761) HEMOGLOBIN (BEAKER) (test code = 10.7 GM/DL 13.7-17.5 L 410) HEMATOCRIT (BEAKER) (test code = 33.3 % 40.1-51.0 L 411) MEAN CORPUSCULAR VOLUME (BEAKER) 92.0 fL 79.0-92.2 (test code = 753) MEAN CORPUSCULAR HEMOGLOBIN 29.6 pg 25.7-32.2 (BEAKER) (test code = 751) MEAN CORPUSCULAR HEMOGLOBIN CONC 32.1 GM/DL 32.3-36.5 L (BEAKER) (test code = 752) RED CELL DISTRIBUTION WIDTH 15.1 % 11.6-14.4 H (BEAKER) (test code = 412) PLATELET COUNT (BEAKER) (test 193 K/CU MM 150-450 code = 756) MEAN PLATELET VOLUME (BEAKER) 9.5 fL 9.4-12.4 (test code = 754) NUCLEATED RED BLOOD CELLS 0 /100 WBC 0-0 (BEAKER) (test code = 413) NEUTROPHILS RELATIVE PERCENT 40 % (BEAKER) (test code = 429) LYMPHOCYTES RELATIVE PERCENT 52 % (BEAKER) (test code = 430) MONOCYTES RELATIVE PERCENT 5 % (BEAKER) (test code = 431) EOSINOPHILS RELATIVE PERCENT 1 % (BEAKER) (test code = 432) BASOPHILS RELATIVE PERCENT 1 % (BEAKER) (test code = 437) NEUTROPHILS ABSOLUTE COUNT 1.75 K/ L 1.78-5.38 L (BEAKER) (test code = 670) LYMPHOCYTES ABSOLUTE COUNT 2.27 K/ L 1.32-3.57 (BEAKER) (test code = 414) MONOCYTES ABSOLUTE COUNT (BEAKER) 0.22 K/ L 0.30-0.82 L (test code = 415) EOSINOPHILS ABSOLUTE COUNT 0.06 K/ L 0.04-0.54 (BEAKER) (test code = 416) BASOPHILS ABSOLUTE COUNT (BEAKER) 0.03 K/ L 0.01-0.08 (test code = 417) IMMATURE GRANULOCYTES-RELATIVE 0 % 0-1 PERCENT (BEAKER) (test code = 2801) T4, [id number] 05:48:00 Test Item Value Reference Range Interpretation Comments FREE T4 (BEAKER) (test code = 655) 0.41 ng/dL 0.70-1.48 L CBC W/PLT COUNT & AUTO [id number] 05:27:00 Test Item Value Reference Range Interpretation Comments WHITE BLOOD CELL COUNT 4.4 K/ L 3.5-10.5 (BEAKER) (test code = 775) RED BLOOD CELL COUNT 4.37 M/ L 4.63-6.08 L (BEAKER) (test code = 761) HEMOGLOBIN (BEAKER) 12.8 GM/DL 13.7-17.5 L Discorda nt HGB (test code = 410) result com pared to previous result ; clinical correl ation required. HEMATOCRIT (BEAKER) 40.1 % 40.1-51.0 (test code = 411) MEAN CORPUSCULAR 91.8 fL 79.0-92.2 VOLUME (BEAKER) (test code = 753) MEAN CORPUSCULAR 29.3 pg 25.7-32.2 HEMOGLOBIN (BEAKER) (test code = 751) MEAN CORPUSCULAR 31.9 GM/DL 32.3-36.5 L HEMOGLOBIN CONC (BEAKER) (test code = 752) RED CELL DISTRIBUTION 15.3 % 11.6-14.4 H WIDTH (BEAKER) (test code = 412) PLATELET COUNT 188 K/CU MM 150-450 (BEAKER) (test code = 756) MEAN PLATELET VOLUME 9.7 fL 9.4-12.4 (BEAKER) (test code = 754) NUCLEATED RED BLOOD 0 /100 WBC 0-0 CELLS (BEAKER) (test code = 413) NEUTROPHILS RELATIVE 50 % PERCENT (BEAKER) (test code = 429) LYMPHOCYTES RELATIVE 42 % PERCENT (BEAKER) (test code = 430) MONOCYTES RELATIVE 5 % PERCENT (BEAKER) (test code = 431) EOSINOPHILS RELATIVE 1 % PERCENT (BEAKER) (test code = 432) BASOPHILS RELATIVE 1 % PERCENT (BEAKER) (test code = 437) NEUTROPHILS ABSOLUTE 2.21 K/ L 1.78-5.38 COUNT (BEAKER) (test code = 670) LYMPHOCYTES ABSOLUTE 1.85 K/ L 1.32-3.57 COUNT (BEAKER) (test code = 414) MONOCYTES ABSOLUTE 0.23 K/ L 0.30-0.82 L COUNT (BEAKER) (test code = 415) EOSINOPHILS ABSOLUTE 0.03 K/ L 0.04-0.54 L COUNT (BEAKER) (test code = 416) BASOPHILS ABSOLUTE 0.04 K/ L 0.01-0.08 COUNT (BEAKER) (test code = 417) IMMATURE 1 % 0-1 GRANULOCYTES-RELATIVE PERCENT (BEAKER) (test code = 2801) BASIC METABOLIC [id number] 05:25:00 Test Item Value Reference Range Interpretation Comments SODIUM (BEAKER) 138 meq/L 136-145 (test code = 381) POTASSIUM (BEAKER) 3.8 meq/L 3.5-5.1 (test code = 379) CHLORIDE (BEAKER) 107 meq/L 98-107 (test code = 382) CO2 (BEAKER) (test 21 meq/L 22-29 L code = 355) BLOOD UREA NITROGEN 11 mg/dL 7-21 (BEAKER) (test code = 354) CREATININE (BEAKER) 1.21 mg/dL 0.57-1.25 (test code = 358) GLUCOSE RANDOM 68 mg/dL 70-105 L (BEAKER) (test code = 652) CALCIUM (BEAKER) 8.9 mg/dL 8.4-10.2 (test code = 697) EGFR (BEAKER) (test 75 mL/min/1.73 ESTIMA JAMIE GFR IS code = 1092) sq m NOT ACCURATE CREATININE CLEARANCE IN PREDICTING GLOMERULAR FILTRATION RATE . ESTIMATED GFR I S NOT APPLICABLE FOR DIALYSIS PATIEN TS. [id number] 05:23:00 Test Item Value Reference Range Interpretation Comments MAGNESIUM (BEAKER) (test code = 2.6 mg/dL 1.6-2.6 627) T4, [id number] 04:15:00 Test Item Value Reference Range Interpretation Comments FREE T4 (BEAKER) (test code = 655) < ng/dL 0.70-1.48 L BASIC METABOLIC [id number] 03:58:00 Test Item Value Reference Range Interpretation Comments SODIUM (BEAKER) 139 meq/L 136-145 (test code = 381) POTASSIUM (BEAKER) 4.0 meq/L 3.5-5.1 Specimen slightly (test code = 379) hemolyzed CHLORIDE (BEAKER) 112 meq/L 98-107 H (test code = 382) CO2 (BEAKER) (test 20 meq/L 22-29 L code = 355) BLOOD UREA NITROGEN 16 mg/dL 7-21 (BEAKER) (test code = 354) CREATININE (BEAKER) 1.40 mg/dL 0.57-1.25 H Specimen slightly (test code = 358) hemolyzed GLUCOSE RANDOM 69 mg/dL 70-105 L (BEAKER) (test code = 652) CALCIUM (BEAKER) 7.6 mg/dL 8.4-10.2 L (test code = 697) EGFR (BEAKER) (test 63 mL/min/1.73 ESTIMA JAMIE GFR IS code = 1092) sq m NOT ACCURATE CREATININE CLEARANCE IN PREDICTING GLOMERULAR FILTRATION RATE . ESTIMATED GFR I S NOT APPLICABLE FOR DIALYSIS PATIEN TS. [id number] 03:54:00 Test Item Value Reference Range Interpretation Comments MAGNESIUM (BEAKER) 1.9 mg/dL 1.6-2.6 Specimen slightly (test code = 627) hemolyzed [id number] 03:54:00 Test Item Value Reference Range Interpretation Comments PHOSPHORUS (BEAKER) 2.0 mg/dL 2.3-4.7 L Specimen slightly (test code = 604) hemolyzed CBC W/PLT COUNT & AUTO [id number] 03:39:00 Test Item Value Reference Range Interpretation Comments WHITE BLOOD CELL COUNT (BEAKER) 5.6 K/ L 3.5-10.5 (test code = 775) RED BLOOD CELL COUNT (BEAKER) 3.19 M/ L 4.63-6.08 L (test code = 761) HEMOGLOBIN (BEAKER) (test code = 9.4 GM/DL 13.7-17.5 L 410) HEMATOCRIT (BEAKER) (test code = 29.8 % 40.1-51.0 L 411) MEAN CORPUSCULAR VOLUME (BEAKER) 93.4 fL 79.0-92.2 H (test code = 753) MEAN CORPUSCULAR HEMOGLOBIN 29.5 pg 25.7-32.2 (BEAKER) (test code = 751) MEAN CORPUSCULAR HEMOGLOBIN CONC 31.5 GM/DL 32.3-36.5 L (BEAKER) (test code = 752) RED CELL DISTRIBUTION WIDTH 15.4 % 11.6-14.4 H (BEAKER) (test code = 412) PLATELET COUNT (BEAKER) (test 171 K/CU MM 150-450 code = 756) MEAN PLATELET VOLUME (BEAKER) 10.0 fL 9.4-12.4 (test code = 754) NUCLEATED RED BLOOD CELLS 0 /100 WBC 0-0 (BEAKER) (test code = 413) NEUTROPHILS RELATIVE PERCENT 59 % (BEAKER) (test code = 429) LYMPHOCYTES RELATIVE PERCENT 36 % (BEAKER) (test code = 430) MONOCYTES RELATIVE PERCENT 4 % (BEAKER) (test code = 431) EOSINOPHILS RELATIVE PERCENT 1 % (BEAKER) (test code = 432) BASOPHILS RELATIVE PERCENT 0 % (BEAKER) (test code = 437) NEUTROPHILS ABSOLUTE COUNT 3.34 K/ L 1.78-5.38 (BEAKER) (test code = 670) LYMPHOCYTES ABSOLUTE COUNT 2.03 K/ L 1.32-3.57 (BEAKER) (test code = 414) MONOCYTES ABSOLUTE COUNT (BEAKER) 0.21 K/ L 0.30-0.82 L (test code = 415) EOSINOPHILS ABSOLUTE COUNT 0.03 K/ L 0.04-0.54 L (BEAKER) (test code = 416) BASOPHILS ABSOLUTE COUNT (BEAKER) 0.01 K/ L 0.01-0.08 (test code = 417) IMMATURE GRANULOCYTES-RELATIVE 0 % 0-1 PERCENT (BEAKER) (test code = 2801) CBC W/PLT COUNT & AUTO [id number] 05:19:00 Test Item Value Reference Range Interpretation Comments WHITE BLOOD CELL COUNT (BEAKER) 6.8 K/ L 3.5-10.5 (test code = 775) RED BLOOD CELL COUNT (BEAKER) 3.48 M/ L 4.63-6.08 L (test code = 761) HEMOGLOBIN (BEAKER) (test code = 10.4 GM/DL 13.7-17.5 L 410) HEMATOCRIT (BEAKER) (test code = 32.4 % 40.1-51.0 L 411) MEAN CORPUSCULAR VOLUME (BEAKER) 93.1 fL 79.0-92.2 H (test code = 753) MEAN CORPUSCULAR HEMOGLOBIN 29.9 pg 25.7-32.2 (BEAKER) (test code = 751) MEAN CORPUSCULAR HEMOGLOBIN CONC 32.1 GM/DL 32.3-36.5 L (BEAKER) (test code = 752) RED CELL DISTRIBUTION WIDTH 15.6 % 11.6-14.4 H (BEAKER) (test code = 412) PLATELET COUNT (BEAKER) (test 164 K/CU MM 150-450 code = 756) MEAN PLATELET VOLUME (BEAKER) 9.9 fL 9.4-12.4 (test code = 754) NUCLEATED RED BLOOD CELLS 0 /100 WBC 0-0 (BEAKER) (test code = 413) NEUTROPHILS RELATIVE PERCENT 82 % (BEAKER) (test code = 429) LYMPHOCYTES RELATIVE PERCENT 15 % (BEAKER) (test code = 430) MONOCYTES RELATIVE PERCENT 3 % (BEAKER) (test code = 431) EOSINOPHILS RELATIVE PERCENT 0 % (BEAKER) (test code = 432) BASOPHILS RELATIVE PERCENT 0 % (BEAKER) (test code = 437) NEUTROPHILS ABSOLUTE COUNT 5.61 K/ L 1.78-5.38 H (BEAKER) (test code = 670) LYMPHOCYTES ABSOLUTE COUNT 1.01 K/ L 1.32-3.57 L (BEAKER) (test code = 414) MONOCYTES ABSOLUTE COUNT (BEAKER) 0.17 K/ L 0.30-0.82 L (test code = 415) EOSINOPHILS ABSOLUTE COUNT 0.00 K/ L 0.04-0.54 L (BEAKER) (test code = 416) BASOPHILS ABSOLUTE COUNT (BEAKER) 0.01 K/ L 0.01-0.08 (test code = 417) IMMATURE GRANULOCYTES-RELATIVE 0 % 0-1 PERCENT (BEAKER) (test code = 2801) T4, [id number] 04:48:00 Test Item Value Reference Range Interpretation Comments FREE T4 (BEAKER) (test code = 655) < ng/dL 0.70-1.48 L TROPONIN [id number] 04:06:00 Test Item Value Reference Range Interpretation Comments TROPONIN I (BEAKER) (test code = 0.02 ng/mL 0.00-0.03 397) Troponin I (TnI) levels must be interpreted in the context of the presenting symptoms and the clinical findings. Elevated TnI levels indicate myocardial damage, but are not specific for ischemic heart disease. Elevated TnI levels are seen in patients with other cardiac conditions (including myocarditis and congestive heart failure), and slight TnI elevations occur in patients with other conditions, including sepsis, renal failure, acidosis, acute neurological disease, and persistent tachyarrhythmia.BASIC METABOLIC [id number] 04:01:00 Test Item Value Reference Range Interpretation Comments SODIUM (BEAKER) 140 meq/L 136-145 (test code = 381) POTASSIUM (BEAKER) 4.5 meq/L 3.5-5.1 Specimen slightly (test code = 379) hemolyzed CHLORIDE (BEAKER) 112 meq/L 98-107 H (test code = 382) CO2 (BEAKER) (test 21 meq/L 22-29 L code = 355) BLOOD UREA NITROGEN 13 mg/dL 7-21 (BEAKER) (test code = 354) CREATININE (BEAKER) 1.29 mg/dL 0.57-1.25 H Specimen slightly (test code = 358) hemolyzed GLUCOSE RANDOM 88 mg/dL 70-105 (BEAKER) (test code = 652) CALCIUM (BEAKER) 7.8 mg/dL 8.4-10.2 L (test code = 697) EGFR (BEAKER) (test 70 mL/min/1.73 ESTIMA JAMIE GFR IS code = 1092) sq m NOT ACCURATE CREATININE CLEARANCE IN PREDICTING GLOMERULAR FILTRATION RATE . ESTIMATED GFR I S NOT APPLICABLE FOR DIALYSIS PATIEN TS. [id number] 03:59:00 Test Item Value Reference Range Interpretation Comments MAGNESIUM (BEAKER) 1.9 mg/dL 1.6-2.6 Specimen slightly (test code = 627) hemolyzed [id number] 03:59:00 Test Item Value Reference Range Interpretation Comments PHOSPHORUS (BEAKER) 2.6 mg/dL 2.3-4.7 Specimen slightly (test code = 604) hemolyzed CORTISOL,60 [id number] 19:46:00 Test Item Value Reference Range Interpretation Comments CORTISOL BASELINE NETWORKED 17.6 mcg/dL (BEAKER) (test code = 2307) CORTISOL 30 MINUTE NETWORKED 24.3 mcg/dL (BEAKER) (test code = 2308) CORTISOL, 60 MINUTE (BEAKER) 26.7 ug/dL (test code = 1805) ACTH STIMULATION TEST INTERPRETATION GUIDELINES(Synonyms: Cortrosyn Test, Cosyntropin or Corticotropin Stimulation Test)Adenocorticotropic hormone (ACTH)is a tropic hormone, made in the pituitary gland, which travels trhough the bloodstream and stimulates the cortex of the adrenal glands to release cortisol. Cortisol is a primary hormone, which aids the body's metabolism of fats, carbohydrates, and protein as well as sodium and potassium regulation.ACTH Stimulation Test: Exogenous administrationof biologically active ACTH stimulates the secretion of cortisol from the adrenal gland. This test is used to evaluate adrenal function by measuring cortisol levels at baseline and at 30 and 60 minutesafter the administration of 250 micrograms of cosyntropin (Cortrosyn). Patients who have received exogenous corticosteroids immediately prior to performing the ACTH Stimulation Test will often have elevated baseline cortisol levels, which may lead to erroneous interpretation of test results. The notable exception is with dexamethasone.Normal Response: An increase in cortisol after stimulation by ACTHis normal. Post-stimulation cortisol concentration should be greater than 20 mcg/dL or the rate of rise from baseline cortisol should be greater than or equal to 9 mcg/dL.Patients with sepsis or septicshock: According to a study by Pasha et al (REBECA 2000,283(8):1038-45), the ACTH Stimulation Test provides important prognostic information. This study defined 3 groups of patients with sepsis or septic shock: 1. Good Survival: Low basal cortisol (<or=34 mcg/dL) and high ACTH response (>9mcg/dL) 2. Intermediate Survival: Low basal cortisol (<34 mcg/dL) and low response to ACTH (&l t;or=9 mcg/dL) OR High basal cortisol (>34 mcg/dL) or high ACTH response (>9 mcg/dL) 3.Poor Survival: High basal cortisol (>34 mcg/dL) and low ACTH response (<or=9 mcg/dL).Treatment of patients with relative adrenal dysfunction may be indicated based on test results and the clinical condition of the patient. Additional information, including treatment recommendations, is available in critically ill patients, approved by the Pharmacy, Nutrition, and Therapeutics Committee on 09/16/2004 and available through the Pharmacy Policy and Procedure Section on [employer].Do not run this test if systemic hydrocortisone, methylprednisolone, prednisolone or prednisone has been administered within the past 24 hours. Draw baseline cortisol level just prior to cosyntropin administration. Administer cosyntropin 0.25 mg diluted in 2-5 mL of normal saline slow IV Push over a period of 2 minutes. Draw serum cortisol level 30 minutes after cosyntropin administration. Draw serum cortisollevel 60 minutes after cosyntropin administration.CORTISOL,30 [id number] 19:09:00 Test Item Value Reference Range Interpretation Comments CORTISOL BASELINE NETWORKED 17.6 mcg/dL (BEAKER) (test code = 2307) CORTISOL, 30 MINUTE (BEAKER) 24.3 ug/dL (test code = 1804) ACTH STIMULATION TEST INTERPRETATION GUIDELINES(Synonyms: Cortrosyn Test, Cosyntropin or Corticotropin Stimulation Test)Adenocorticotropic hormone (ACTH)is a tropic hormone, made in the pituitary gland, which travels trhough the bloodstream and stimulates the cortex of the adrenal glands to release cortisol. Cortisol is a primary hormone, which aids the body's metabolism of fats, carbohydrates, and protein as well as sodium and potassium regulation.ACTH Stimulation Test: Exogenous administrationof biologically active ACTH stimulates the secretion of cortisol from the adrenal gland. This test is used to evaluate adrenal function by measuring cortisol levels at baseline and at 30 and 60 minutesafter the administration of 250 micrograms of cosyntropin (Cortrosyn). Patients who have received exogenous corticosteroids immediately prior to performing the ACTH Stimulation Test will often have elevated baseline cortisol levels, which may lead to erroneous interpretation of test results. The notable exception is with dexamethasone.Normal Response: An increase in cortisol after stimulation by ACTHis normal. Post-stimulation cortisol concentration should be greater than 20 mcg/dL or the rate of rise from baseline cortisol should be greater than or equal to 9 mcg/dL.Patients with sepsis or septicshock: According to a study by Pasha et al (REBECA 2000,283(8):1038-45), the ACTH Stimulation Test provides important prognostic information. This study defined 3 groups of patients with sepsis or septic shock: 1. Good Survival: Low basal cortisol (<or=34 mcg/dL) and high ACTH response (>9mcg/dL) 2. Intermediate Survival: Low basal cortisol (<34 mcg/dL) and low response to ACTH (&l t;or=9 mcg/dL) OR High basal cortisol (>34 mcg/dL) or high ACTH response (>9 mcg/dL) 3.Poor Survival: High basal cortisol (>34 mcg/dL) and low ACTH response (<or=9 mcg/dL).Treatment of patients with relative adrenal dysfunction may be indicated based on test results and the clinical condition of the patient. Additional information, including treatment recommendations, is available in critically ill patients, approved by the Pharmacy, Nutrition, and Therapeutics Committee on 09/16/2004 and available through the Pharmacy Policy and Procedure Section on [employer].Do not run this test if systemic hydrocortisone, methylprednisolone, prednisolone or prednisone has been administered within the past 24 hours. Draw baseline cortisol level just prior to cosyntropin administration. Administer cosyntropin 0.25 mg diluted in 2-5 mL of normal saline slow IV Push over a period of 2 minutes. Draw serum cortisol level 30 minutes after cosyntropin administration. Draw serum cortisollevel 60 minutes after cosyntropin administration.CORTISOL,[id number] 18:14:00 Test Item Value Reference Range Interpretation Comments CORTISOL, BASELINE (JAVIER) (test 17.6 ug/dL code = 1803) ACTH STIMULATION TEST INTERPRETATION GUIDELINES(Synonyms: Cortrosyn Test, Cosyntropin or Corticotropin Stimulation Test)Adenocorticotropic hormone (ACTH)is a tropic hormone, made in the pituitary gland, which travels trhough the bloodstream and stimulates the cortex of the adrenal glands to release cortisol. Cortisol is a primary hormone, which aids the body's metabolism of fats, carbohydrates, and protein as well as sodium and potassium regulation.ACTH Stimulation Test: Exogenous administrationof biologically active ACTH stimulates the secretion of cortisol from the adrenal gland. This test is used to evaluate adrenal function by measuring cortisol levels at baseline and at 30 and 60 minutesafter the administration of 250 micrograms of cosyntropin (Cortrosyn). Patients who have received exogenous corticosteroids immediately prior to performing the ACTH Stimulation Test will often have elevated baseline cortisol levels, which may lead to erroneous interpretation of test results. The notable exception is with dexamethasone.Normal Response: An increase in cortisol after stimulation by ACTHis normal. Post-stimulation cortisol concentration should be greater than 20 mcg/dL or the rate of rise from baseline cortisol should be greater than or equal to 9 mcg/dL.Patients with sepsis or septicshock: According to a study by Pasha et al (REBECA 2000,283(8):1038-45), the ACTH Stimulation Test provides important prognostic information. This study defined 3 groups of patients with sepsis or septic shock: 1. Good Survival: Low basal cortisol (<or=34 mcg/dL) and high ACTH response (>9mcg/dL) 2. Intermediate Survival: Low basal cortisol (<34 mcg/dL) and low response to ACTH (&l t;or=9 mcg/dL) OR High basal cortisol (>34 mcg/dL) or high ACTH response (>9 mcg/dL) 3.Poor Survival: High basal cortisol (>34 mcg/dL) and low ACTH response (<or=9 mcg/dL).Treatment of patients with relative adrenal dysfunction may be indicated based on test results and the clinical condition of the patient. Additional information, including treatment recommendations, is available in critically ill patients, approved by the Pharmacy, Nutrition, and Therapeutics Committee on 09/16/2004 and available through the Pharmacy Policy and Procedure Section on [employer].Do not run this test if systemic hydrocortisone, methylprednisolone, prednisolone or prednisone has been administered within the past 24 hours. Draw baseline cortisol level just prior to cosyntropin administration. Administer cosyntropin 0.25 mg diluted in 2-5 mL of normal saline slow IV Push over a period of 2 minutes. Draw serum cortisol level 30 minutes after cosyntropin administration. Draw serum cortisollevel 60 minutes after cosyntropin administration.[id number] 17:11:00 Test Item Value Reference Range Interpretation Comments CORTISOL, TOTAL (BEAKER) (test 19.8 ug/dL 3.7-19.4 H code = 2755) TROPONIN [id number] 16:56:00 Test Item Value Reference Range Interpretation Comments TROPONIN I (BEAKER) (test code = 0.03 ng/mL 0.00-0.03 397) Troponin I (TnI) levels must be interpreted in the context of the presenting symptoms and the clinical findings. Elevated TnI levels indicate myocardial damage, but are not specific for ischemic heart disease. Elevated TnI levels are seen in patients with other cardiac conditions (including myocarditis and congestive heart failure), and slight TnI elevations occur in patients with other conditions, including sepsis, renal failure, acidosis, acute neurological disease, and persistent tachyarrhythmia.TROPONIN [id number] 05:54:00 Test Item Value Reference Range Interpretation Comments TROPONIN I (BEAKER) (test code = 0.03 ng/mL 0.00-0.03 397) Troponin I (TnI) levels must be interpreted in the context of the presenting symptoms and the clinical findings. Elevated TnI levels indicate myocardial damage, but are not specific for ischemic heart disease. Elevated TnI levels are seen in patients with other cardiac conditions (including myocarditis and congestive heart failure), and slight TnI elevations occur in patients with other conditions, including sepsis, renal failure, acidosis, acute neurological disease, and persistent tachyarrhythmia.B-TYPE NATRIURETIC FACTOR (BNP) 2019-10-09 05:29:00 Test Item Value Reference Range Interpretation Comments B-TYPE NATRIURETIC PEPTIDE (BEAKER) 507 pg/mL 0-100 H (test code = 700) CBC W/PLT COUNT & AUTO [id number] 05:06:00 Test Item Value Reference Range Interpretation Comments WHITE BLOOD CELL COUNT (BEAKER) 7.3 K/ L 3.5-10.5 (test code = 775) RED BLOOD CELL COUNT (BEAKER) 4.28 M/ L 4.63-6.08 L (test code = 761) HEMOGLOBIN (BEAKER) (test code = 12.4 GM/DL 13.7-17.5 L 410) HEMATOCRIT (BEAKER) (test code = 39.1 % 40.1-51.0 L 411) MEAN CORPUSCULAR VOLUME (BEAKER) 91.4 fL 79.0-92.2 (test code = 753) MEAN CORPUSCULAR HEMOGLOBIN 29.0 pg 25.7-32.2 (BEAKER) (test code = 751) MEAN CORPUSCULAR HEMOGLOBIN CONC 31.7 GM/DL 32.3-36.5 L (BEAKER) (test code = 752) RED CELL DISTRIBUTION WIDTH 15.2 % 11.6-14.4 H (BEAKER) (test code = 412) PLATELET COUNT (BEAKER) (test 204 K/CU MM 150-450 code = 756) MEAN PLATELET VOLUME (BEAKER) 9.5 fL 9.4-12.4 (test code = 754) NUCLEATED RED BLOOD CELLS 0 /100 WBC 0-0 (BEAKER) (test code = 413) NEUTROPHILS RELATIVE PERCENT 75 % (BEAKER) (test code = 429) LYMPHOCYTES RELATIVE PERCENT 21 % (BEAKER) (test code = 430) MONOCYTES RELATIVE PERCENT 4 % (BEAKER) (test code = 431) EOSINOPHILS RELATIVE PERCENT 0 % (BEAKER) (test code = 432) BASOPHILS RELATIVE PERCENT 0 % (BEAKER) (test code = 437) NEUTROPHILS ABSOLUTE COUNT 5.47 K/ L 1.78-5.38 H (BEAKER) (test code = 670) LYMPHOCYTES ABSOLUTE COUNT 1.53 K/ L 1.32-3.57 (BEAKER) (test code = 414) MONOCYTES ABSOLUTE COUNT (BEAKER) 0.28 K/ L 0.30-0.82 L (test code = 415) EOSINOPHILS ABSOLUTE COUNT 0.00 K/ L 0.04-0.54 L (BEAKER) (test code = 416) BASOPHILS ABSOLUTE COUNT (BEAKER) 0.02 K/ L 0.01-0.08 (test code = 417) IMMATURE GRANULOCYTES-RELATIVE 0 % 0-1 PERCENT (BEAKER) (test code = 2801) BASIC METABOLIC [id number] 01:41:00 Test Item Value Reference Range Interpretation Comments SODIUM (BEAKER) 142 meq/L 136-145 (test code = 381) POTASSIUM (BEAKER) 3.2 meq/L 3.5-5.1 L Specimen slightly (test code = 379) hemolyzed CHLORIDE (BEAKER) 112 meq/L 98-107 H (test code = 382) CO2 (BEAKER) (test 22 meq/L 22-29 code = 355) BLOOD UREA NITROGEN 11 mg/dL 7-21 (BEAKER) (test code = 354) CREATININE (BEAKER) 1.15 mg/dL 0.57-1.25 Specimen slightly (test code = 358) hemolyzed GLUCOSE RANDOM 79 mg/dL 70-105 (BEAKER) (test code = 652) CALCIUM (BEAKER) 7.1 mg/dL 8.4-10.2 L (test code = 697) EGFR (BEAKER) (test 79 mL/min/1.73 ESTIMA JAMIE GFR IS code = 1092) sq m NOT ACCURATE CREATININE CLEARANCE IN PREDICTING GLOMERULAR FILTRATION RATE . ESTIMATED GFR I S NOT APPLICABLE FOR DIALYSIS PATIEN TS. TROPONIN [id number] 01:35:00 Test Item Value Reference Range Interpretation Comments TROPONIN I (BEAKER) (test code = 0.03 ng/mL 0.00-0.03 397) Troponin I (TnI) levels must be interpreted in the context of the presenting symptoms and the clinical findings. Elevated TnI levels indicate myocardial damage, but are not specific for ischemic heart disease. Elevated TnI levels are seen in patients with other cardiac conditions (including myocarditis and congestive heart failure), and slight TnI elevations occur in patients with other conditions, including sepsis, renal failure, acidosis, acute neurological disease, and persistent tachyarrhythmia.[id number] 01:28:00 Test Item Value Reference Range Interpretation Comments MAGNESIUM (BEAKER) 1.9 mg/dL 1.6-2.6 Specimen slightly (test code = 627) hemolyzed [id number] 01:28:00 Test Item Value Reference Range Interpretation Comments PHOSPHORUS (BEAKER) 1.9 mg/dL 2.3-4.7 L Specimen slightly (test code = 604) hemolyzed RAD, CHEST, 1 VIEW, NON [id number] 23:26:00Reason for exam:->pericardial effusion, HFrEFShould this be performed at the bedside?->YesFINAL REPORT RAD, CHEST, 1 VIEW, NON DEPT CLINICAL HISTORY: pericardial effusion, HFrEF TECHNIQUE: Single view of the chest. COMPARISON: None IMPRESSION: Enlarged cardiac silhouette compatible with pericardial effusion or cardiomegaly. This could be better characterized by cross-sectional imaging or echocardiogram. Tortuous aortic contour. No pneumothorax, significant pleural effusion or focal lung consolidation. Intact osseous structures. Signed: Marc Lopes MDReport Verified Date/Time: 10/08/2019 23:26:01 T4, [id number] 17:29:00 Test Item Value Reference Range Interpretation Comments FREE T4 (BEAKER) (test code = 655) < ng/dL 0.70-1.48 L TSH/FREE T4 IF [id number] 16:54:00 Test Item Value Reference Range Interpretation Comments THYROID STIMULATING HORMONE 30.58 uIU/mL 0.35-4.94 H (BEAKER) (test code = 772) TROPONIN [id number] 16:38:00 Test Item Value Reference Range Interpretation Comments TROPONIN I (BEAKER) (test code = 0.02 ng/mL 0.00-0.03 397) Troponin I (TnI) levels must be interpreted in the context of the presenting symptoms and the clinical findings. Elevated TnI levels indicate myocardial damage, but are not specific for ischemic heart disease. Elevated TnI levels are seen in patients with other cardiac conditions (including myocarditis and congestive heart failure), and slight TnI elevations occur in patients with other conditions, including sepsis, renal failure, acidosis, acute neurological disease, and persistent tachyarrhythmia.[id number] 16:32:00 Test Item Value Reference Range Interpretation Comments MAGNESIUM (BEAKER) (test code = 2.3 mg/dL 1.6-2.6 627) BASIC METABOLIC [id number] 16:32:00 Test Item Value Reference Range Interpretation Comments SODIUM (BEAKER) 145 meq/L 136-145 (test code = 381) POTASSIUM (BEAKER) 4.1 meq/L 3.5-5.1 (test code = 379) CHLORIDE (BEAKER) 106 meq/L 98-107 (test code = 382) CO2 (BEAKER) (test 28 meq/L 22-29 code = 355) BLOOD UREA NITROGEN 13 mg/dL 7-21 (BEAKER) (test code = 354) CREATININE (BEAKER) 1.39 mg/dL 0.57-1.25 H (test code = 358) GLUCOSE RANDOM 104 mg/dL 70-105 (BEAKER) (test code = 652) CALCIUM (BEAKER) 9.2 mg/dL 8.4-10.2 (test code = 697) EGFR (BEAKER) (test 64 mL/min/1.73 ESTIMA JAMIE GFR IS code = 1092) sq m NOT ACCURATE CREATININE CLEARANCE IN PREDICTING GLOMERULAR FILTRATION RATE . ESTIMATED GFR I S NOT APPLICABLE FOR DIALYSIS PATIEN TS. HEPATIC FUNCTION [id number] 16:32:00 Test Item Value Reference Range Interpretation Comments TOTAL PROTEIN (BEAKER) (test code = 7.4 gm/dL 6.0-8.3 770) ALBUMIN (BEAKER) (test code = 1145) 4.2 g/dL 3.5-5.0 BILIRUBIN TOTAL (BEAKER) (test code 0.5 mg/dL 0.2-1.2 = 377) BILIRUBIN DIRECT (BEAKER) (test 0.2 mg/dL 0.1-0.5 code = 706) ALKALINE PHOSPHATASE (BEAKER) (test 54 U/L 40-150 code = 346) AST (SGOT) (BEAKER) (test code = 77 U/L 5-34 H 353) ALT (SGPT) (BEAKER) (test code = 38 U/L 6-55 347) CBC W/PLT COUNT & AUTO [id number] 16:13:00 Test Item Value Reference Range Interpretation Comments WHITE BLOOD CELL COUNT (BEAKER) 8.0 K/ L 3.5-10.5 (test code = 775) RED BLOOD CELL COUNT (BEAKER) 4.44 M/ L 4.63-6.08 L (test code = 761) HEMOGLOBIN (BEAKER) (test code = 13.0 GM/DL 13.7-17.5 L 410) HEMATOCRIT (BEAKER) (test code = 40.7 % 40.1-51.0 411) MEAN CORPUSCULAR VOLUME (BEAKER) 91.7 fL 79.0-92.2 (test code = 753) MEAN CORPUSCULAR HEMOGLOBIN 29.3 pg 25.7-32.2 (BEAKER) (test code = 751) MEAN CORPUSCULAR HEMOGLOBIN CONC 31.9 GM/DL 32.3-36.5 L (BEAKER) (test code = 752) RED CELL DISTRIBUTION WIDTH 14.9 % 11.6-14.4 H (BEAKER) (test code = 412) PLATELET COUNT (BEAKER) (test 214 K/CU MM 150-450 code = 756) MEAN PLATELET VOLUME (BEAKER) 9.7 fL 9.4-12.4 (test code = 754) NUCLEATED RED BLOOD CELLS 0 /100 WBC 0-0 (BEAKER) (test code = 413) NEUTROPHILS RELATIVE PERCENT 82 % (BEAKER) (test code = 429) LYMPHOCYTES RELATIVE PERCENT 14 % (BEAKER) (test code = 430) MONOCYTES RELATIVE PERCENT 3 % (BEAKER) (test code = 431) EOSINOPHILS RELATIVE PERCENT 0 % (BEAKER) (test code = 432) BASOPHILS RELATIVE PERCENT 0 % (BEAKER) (test code = 437) NEUTROPHILS ABSOLUTE COUNT 6.58 K/ L 1.78-5.38 H (BEAKER) (test code = 670) LYMPHOCYTES ABSOLUTE COUNT 1.10 K/ L 1.32-3.57 L (BEAKER) (test code = 414) MONOCYTES ABSOLUTE COUNT (BEAKER) 0.27 K/ L 0.30-0.82 L (test code = 415) EOSINOPHILS ABSOLUTE COUNT 0.00 K/ L 0.04-0.54 L (BEAKER) (test code = 416) BASOPHILS ABSOLUTE COUNT (BEAKER) 0.02 K/ L 0.01-0.08 (test code = 417) IMMATURE GRANULOCYTES-RELATIVE 0 % 0-1 PERCENT (BEAKER) (test code = 2801)
[2021-03-28 20:03] LABS: Potassium 3.5 mmol/L (3.5-5.1)
[2021-03-28 20:04] LABS: Basophils % 0.5 % (0-1.3); Hematocrit 36.1 % (39.6-49.0); Lymphocytes % 31.7 % (15.3-44.8); MPV 8.1 fL (7.6-11.3); RBC Red Blood Cell Count 3.72 M/uL (4.33-5.43)
[2021-03-28 21:08] LABS: Bilirubin Direct 0.3 mg/dL (0-0.2); Bilirubin Total 0.7 mg/dL (0.2-1.0); Protein, Total 7.6 g/dL (6.4-8.2)
--- NOTE | 2021-03-28 21:13 | RAD REPORT ---
EXAM DESCRIPTION: CT - Head Brain Wo Cont - 03/28/2021 9:05 pm CLINICAL HISTORY: WEAKNESS COMPARISON: Head Brain Wo Cont dated 10/08/2019 TECHNIQUE: All CT scans are performed using dose optimization technique as appropriate and may inclu de automated exposure control or mA/KV adjustment according to patient size. FINDINGS: No intracranial hemorrhage, hydrocephalus or extra-axial fluid collection.Old left lacunar infarct.No areas of brain edema or evidence of midline shift. The paranasal sinuses and mastoids are clear. The calvarium is intact. IMPRESSION: No acute intracranial abnormality.
--- NOTE | 2021-03-28 21:17 | RAD REPORT ---
EXAM DESCRIPTION: RAD - Chest Single View - 03/28/2021 9:12 pm CLINICAL HISTORY: weakness Chest pain. COMPARISON: Chest Single View dated 10/08/2019; Head Brain Wo Cont dated 03/28/2021 FINDINGS: Portable technique limits examination quality. The lungs are grossly clear. The heart is moderately enlarged in size. No displaced fractures. IMPRESSION: Cardiomegaly.
[2021-03-28] MEDS ORDERED: NA CHLORIDE 0.9% 2,000 ML ONE (21:25)
--- NOTE | 2021-03-28 22:45 | EDPHYS ---
Physician Documentation [facility] Name: Cristopher Dee Age: 60 yrs Sex: Male : 1960 Arrival Date: 03/28/2021 Time: 17:10 Bed 14 Private MD: ED Physician Terence Polanco HPI: 03/28 22:37 This 60 yrs old Black Male presents to ER via Wheelchair with complaints of Weakness, pkl DEHYDRATION. 22:37 Generalized weakness and decrease appetite. Onset: The symptoms/episode began/occurred pkl 3 day(s) ago. Historical: - Allergies: 17:37 No Known Allergies; ll1 - PMHx: 17:37 Thyroid problem; Hypertension; Depression; ll1 - PSHx: 17:37 water drained from around heart; ll1 - Immunization history:: Flu vaccine is not up to date. - Social history:: Smoking status: Patient denies any tobacco usage or history of. ROS: 22:37 Eyes: Negative for injury, pain, redness, and discharge, ENT: Negative for injury, pkl pain, and discharge, Neck: Negative for injury, pain, and swelling, Cardiovascular: Negative for chest pain, palpitations, and edema, Respiratory: Negative for shortness of breath, cough, wheezing, and pleuritic chest pain, Abdomen/GI: Negative for abdominal pain, nausea, vomiting, diarrhea, and constipation, Back: Negative for injury and pain, : Negative for injury, bleeding, discharge, and swelling, MS/Extremity: Negative for injury and deformity, Skin: Negative for injury, rash, and discoloration. 22:37 Neuro: Positive for generalized weakness. Exam: 22:37 Head/Face: Normocephalic, atraumatic. Eyes: Pupils equal round and reactive to light, pkl extra-ocular motions intact. Lids and lashes normal. Conjunctiva and sclera are non-icteric and not injected. Cornea within normal limits. Periorbital areas with no swelling, redness, or edema. ENT: Nares patent. No nasal discharge, no septal abnormalities noted. Tympanic membranes are normal and external auditory canals are clear. Oropharynx with no redness, swelling, or masses, exudates, or evidence of obstruction, uvula midline. Mucous membranes moist. Neck: Trachea midline, no thyromegaly or masses palpated, and no cervical lymphadenopathy. Supple, full range of motion without nuchal rigidity, or vertebral point tenderness. No Meningismus. Chest/axilla: Normal chest wall appearance and motion. Nontender with no deformity. No lesions are appreciated. Cardiovascular: Regular rate and rhythm with a normal S1 and S2. No gallops, murmurs, or rubs. Normal PMI, no JVD. No pulse deficits. Respiratory: Lungs have equal breath sounds bilaterally, clear to auscultation and percussion. No rales, rhonchi or wheezes noted. No increased work of breathing, no retractions or nasal flaring. Abdomen/GI: Soft, non-tender, with normal bowel sounds. No distension or tympany. No guarding or rebound. No evidence of tenderness throughout. Back: No spinal tenderness. No costovertebral tenderness. Full range of motion. Skin: Warm, dry with normal turgor. Normal color with no rashes, no lesions, and no evidence of cellulitis. MS/ Extremity: Pulses equal, no cyanosis. Neurovascular intact. Full, normal range of motion. 22:37 Neuro: Orientation: appropriate for stated age, Mentation: is normal, Cranial nerves: grossly normal, Cerebellar function: normal finger to nose testing, heel to palomo testing is normal, Motor: is normal, Gait: is steady. Vital Signs: 17:34 BP 121 / 94; Pulse 81; Resp 17; Temp 97.6; Pulse Ox 95% ; Weight 58.97 kg; Height 5 ft. ll1 8 in. (172.72 cm); Pain 5/10; 19:02 BP 128 / 97; Pulse 71; Resp 15; Pulse Ox 100% ; jl7 20:30 BP 115 / 65; Pulse 79; Resp 16; Pulse Ox 97% ; rr5 21:24 BP 121 / 85; Pulse 75; Resp 19; Pulse Ox 98% ; rr5 22:30 BP 125 / 69; Pulse 70; Resp 16; Pulse Ox 97% ; rr5 23:32 BP 124 / 78; Pulse 74; Resp 16; Pulse Ox 99% on R/A; jm8 17:34 Body Mass Index 19.77 (58.97 kg, 172.72 cm) ll1 MDM: 19:16 Patient medically screened. kb 20:40 Patient medically screened. pkl 22:37 Data reviewed: vital signs, nurses notes, lab test result(s), EKG, radiologic studies, pkl CT scan, plain films. ED course: Discussed lab, EKG and imaging studies with patient. Advised to follow [facility] 1 to 2 days. Patient understood instructions. 03/28 19:24 Order name: CBC with Diff; Complete Time: 20:49 kb 03/28 19:24 Order name: Basic Metabolic Panel; Complete Time: 22:28 kb 03/28 20:56 Order name: Liver (Hepatic) Function; Complete Time: 22:28 EDMS 03/28 19:24 Order name: IV Start; Complete Time: 19:47 kb 03/28 20:53 Order name: CT Head Brain wo Cont; Complete Time: 22:28 pkl 03/28 20:53 Order name: EKG; Complete Time: 20:53 pkl 03/28 20:53 Order name: XRAY CXR (1 view); Complete Time: 22:28 pkl Administered Medications: 21:20 Drug: NS 0.9% 1000 ml Route: IV; Rate: 1000 ml; Site: right antecubital; rr5 23:31 Follow up: IV Status: Completed infusion 8 22:11 Drug: NS 0.9% 1000 ml Route: IV; Rate: 125 ml/hr; Site: left forearm; rr5 23:31 Follow up: IV Status: Completed infusion jm8 Disposition: 03/28/21 22:44 Discharged to Home. Impression: Dehydration. Carciomegaly. Chronic renal disease. - Condition is Stable. - Medication Reconciliation Form, Thank You Letter, Antibiotic Education, Prescription Opioid Use form. - Follow up: Private Physician; When: 1 - 2 days; Reason: Re-evaluation by your physician. - Problem is new. - Symptoms have improved. Signatures: Dispatcher [employer] EDMS Nelli Celis, CERTIFIED RESIDENTIAL MEDICATION AIDE-C CERTIFIED RESIDENTIAL MEDICATION AIDE-Ckb Terence Polanco MD MD pkl Roque, Raymond, RN RN rr5 Fátima Calixto RN RN ll1 Alejandro Elaine RN RN jm8 Corrections: (The following items were deleted from the chart) 20:52 20:51 HEMOGLOBIN A1C+CHEM A1C.LAB.BRZ ordered. EDMS EDMS 20:55 20:53 HEPATIC FUNCTION+C.LAB.BRZ ordered. EDMS EDMS 23:31 22:44 03/28/2021 22:44 Discharged to Home. Impression: Dehydration. Carciomegaly. jm8 Chronic renal disease. Condition is Stable. Forms are Medication Reconciliation Form, Thank You Letter, Antibiotic Education, Prescription Opioid Use. Follow up: Private Physician; When: 1 - 2 days; Reason: Re-evaluation by your physician. Problem is new. Symptoms have improved. pkl
--- NOTE | 2021-03-28 22:45 | ER ---
Nurse's Notes [facility] Name: Cristopher Dee Age: 60 yrs Sex: Male : 1960 Arrival Date: 03/28/2021 Time: 17:10 Bed 14 Private MD: Diagnosis: Dehydration. Carciomegaly. Chronic renal disease Presentation: 03/28 17:34 Chief complaint: Patient states: Weakness, not eating well for 3 days. States he ll1 doesn't feel well. No fever or N/V/D. No appetite. Coronavirus screen: Client denies travel out of the [place] in the last 14 days. At this time, the client does not indicate any symptoms associated with coronavirus-19. Ebola Screen: Patient denies travel to an Ebola-affected area in the 21 days before illness onset. No acute neurological deficit is noted. Initial Sepsis Screen: Does the patient meet any 2 criteria? No. Patient's initial sepsis screen is negative. Does the patient have a suspected source of infection? No. Patient's initial sepsis screen is negative. Risk Assessment: Do you want to hurt yourself or someone else? Patient reports no desire to harm self or others. Onset of symptoms was March 26, 2021. 17:34 Method Of Arrival: Wheelchair ll1 17:34 Acuity: FRANCHESCA 3 ll1 Stroke Activation: Symptom onset > 6 hours Physician: Stroke Attending; Name: ; Notified At: ; Arrived At: Physician: Chief Stroke Resident; Name: ; Notified At: ; Arrived At: Physician: Stroke Resident; Name: ; Notified At: ; Arrived At: Physician: ED Attending; Name: ; Notified At: ; Arrived At: Physician: ED Resident; Name: ; Notified At: ; Arrived At: Historical: - Allergies: 17:37 No Known Allergies; ll1 - PMHx: 17:37 Thyroid problem; Hypertension; Depression; ll1 - PSHx: 17:37 water drained from around heart; ll1 - Immunization history:: Flu vaccine is not up to date. - Social history:: Smoking status: Patient denies any tobacco usage or history of. Screenin:55 Abuse screen: Denies threats or abuse. Denies injuries from another. Nutritional jl7 screening: No deficits noted. Tuberculosis screening: No symptoms or risk factors identified. 23:30 Fall Risk IV access (20 points). jm8 Assessment: 19:30 General: Appears in no apparent distress. uncomfortable, Behavior is calm, cooperative, rr5 appropriate for age. 19:30 Pain: Denies pain. Neuro: Level of Consciousness is awake, alert, obeys commands, rr5 Oriented to person, place, time, Reports weakness. Cardiovascular: Capillary refill < 3 seconds Patient's skin is warm and dry. Respiratory: Airway is patent Respiratory effort is even, unlabored, Respiratory pattern is regular, symmetrical. GI: Abdomen is flat, Reports thirsty. : No signs and/or symptoms were reported regarding the genitourinary system. EENT: No signs and/or symptoms were reported regarding the EENT system. Derm: Skin is fragile, is thin, with poor turgor Skin is dry. Musculoskeletal: Capillary refill < 3 seconds. 20:30 Reassessment: Patient appears in no apparent distress at this time. Patient is alert, rr5 oriented x 3, equal unlabored respirations, skin warm/dry/pink. awaiting for results. 21:30 Reassessment: Patient appears in no apparent distress at this time. IVF infusing well rr5 VS taken and recorded. awaiting for results. snacks given with good appetite. 22:50 Reassessment: Patient appears in no apparent distress at this time. Patient is alert, rr5 oriented x 3, equal unlabored respirations, skin warm/dry/pink. for discharge awaiting for his father. 23:30 Reassessment: Patient appears in no apparent distress at this time. Patient is alert, rr5 oriented x 3, equal unlabored respirations, skin warm/dry/pink. discharge instruction given and explained to patient and father without complaints made. Vital Signs: 17:34 BP 121 / 94; Pulse 81; Resp 17; Temp 97.6; Pulse Ox 95% ; Weight 58.97 kg; Height 5 ft. ll1 8 in. (172.72 cm); Pain 5/10; 19:02 BP 128 / 97; Pulse 71; Resp 15; Pulse Ox 100% ; jl7 20:30 BP 115 / 65; Pulse 79; Resp 16; Pulse Ox 97% ; rr5 21:24 BP 121 / 85; Pulse 75; Resp 19; Pulse Ox 98% ; rr5 22:30 BP 125 / 69; Pulse 70; Resp 16; Pulse Ox 97% ; rr5 23:32 BP 124 / 78; Pulse 74; Resp 16; Pulse Ox 99% on R/A; jm8 17:34 Body Mass Index 19.77 (58.97 kg, 172.72 cm) ll1 ED Course: 17:10 Patient arrived in ED. as 17:36 Triage completed. ll1 17:37 Arm band placed on. ll1 18:46 Marcella Mari RN is Primary Nurse. jl7 18:55 Patient has correct armband on for positive identification. Bed in low position. Call jl7 light in reach. Side rails up X 1. air quality instrument specialist on. Pulse ox on. NIBP on. 19:16 Nelli Celis FNP-C is PHCP. kb 19:16 Terence Polanco MD is Attending Physician. kb 19:40 Inserted saline lock: 20 gauge in right antecubital area, using aseptic technique. rr5 Blood collected. 20:28 Terence Polanco MD is Attending Physician. pkl 20:40 Terence Polanco MD is Attending Physician. pkl 21:05 CT Head Brain wo Cont In Process Unspecified. EDMS 21:11 XRAY CXR (1 view) In Process Unspecified. EDMS 21:22 EKG done, by ED staff, reviewed by Terence Polanco MD. rr5 22:11 Inserted saline lock: 20 gauge in left forearm, using aseptic technique. rr5 23:30 IV discontinued, intact, bleeding controlled, No redness/swelling at site. jm8 23:30 No provider procedures requiring assistance completed. 8 Administered Medications: 21:20 Drug: NS 0.9% 1000 ml Route: IV; Rate: 1000 ml; Site: right antecubital; rr5 23:31 Follow up: IV Status: Completed infusion jm8 22:11 Drug: NS 0.9% 1000 ml Route: IV; Rate: 125 ml/hr; Site: left forearm; rr5 23:31 Follow up: IV Status: Completed infusion 8 Outcome: 22:44 Discharge ordered by . pkl 23:30 Discharged to home via wheelchair, with family. jm8 23:30 Condition: good 23:30 Discharge instructions given to patient, family, Instructed on discharge instructions, follow up and referral plans. Demonstrated understanding of instructions, follow-up care. 23:31 Patient left the ED. jm8 Signatures: Dispatcher [employer] EDMS Nelli eClis, BULK SEALER OPERATOR-C BULK SEALER OPERATOR-Ckb Terence Polanco MD MD pkl Martinez, Amelia as Leal, Jahala, RN RN jl7 Nicola Cortez, RN RN rr5 Fátima Calixto, RN RN ll1 Alejandro Elaine RN RN jm8
[2021-03-29 00:26] VITALS: TEMP 97.6
[2021-03-29 00:32] VITALS: BP 121/85; O2SAT 98
--- NOTE | 2021-03-29 07:50 | EKG ---
Test Date: 2021-03-28 Test Time: 21:19:34 Oiling Machine Operator: RR MEASUREMENT RESULTS: Intervals: Rate: 78 MD: 184 QRSD: 176 QT: 458 QTc: 522 [place]: P: 55 MD: 184 QRS: 116 T: -42 INTERPRETIVE STATEMENTS: Normal sinus rhythm Right axis deviation Left bundle branch block Abnormal ECG Compared to ECG 10/08/2019 08:24:31 Right-axis deviation now present Electronically Signed On 03-29-21 07:48:55 CDT by Primo Joseph
== END 2021-03-28 23:31 | disposition home or self-care (01) ==
LOC: ER 17:07
DX: E86.0 Dehydration (principal); I13.10 Hypertensive heart and chronic kidney disease without heart failure, with stage 1 through stage 4 chronic kidney disease, or unspecified chronic kidney disease; N18.9 Chronic kidney disease, unspecified; F32.9 Major depressive disorder, single episode, unspecified
CPT/HCPCS: 96361; 93005; 85025; 80048; 36415; 80076; 70450; 71045; 96360; 99284; J7030

== ENCOUNTER 2021-05-12 03:28 | Emergency (ER) | payer OTHER ==
--- OUTSIDE RECORDS SUMMARY | 2021-05-12 03:31 | XMS REPORT | Continuity of Care Document ---
:1960 Author Organization [facility] t Address [address] [place] [address] Care Team Providers Name Role Phone Urbano RODRIGUEZ Attending Clinician Unavailable ANI ADAM Admitting Clinician Unavailable Problems Condition Condition Condition Status Onset Resolution Last Treating Co mments Source Name Details Category Date Date Treatment Clinician Date Pericardia Pericardia Disease Active [facility] effusion l effusion 10-11 [facility] - 00:[facility]: Medical 00 [place] Dehydratio Dehydratio Disease Active [facility] Allergies, Adverse Reactions, Alerts This patient has no known allergies or adverse reactions. Social History Social Habit Start Date Stop Date Quantity Comments Source Sex Assigned At [facility] Medications Ordered Filled Start Stop Current Ordering Indication Dosage Frequency Signature Comments Components Source Medication Medication Date Date Medication? Clinician (SIG) Name Name levothyroxi 2020- No 150ug Take [address] [facility] 10-25 tablet [facility] - (SYNTHROID, 00:00: 23:59 (150 mcg M edical LEVOTHROID) 00 :00 total) by [facility] ter 150 MCG mouth tablet Every morning on an empty stomach. metoprolol 2020- No 25mg QD Take 1 [facility] (TOPROL-XL) 10-25 tablet (25 L ukes - 25 MG 24 hr 00:00: 23:59 mg total) Medical tablet 00 :00 by mouth Center daily. Procedures This patient has no known procedures. Plan of Care Planned Activity Planned Date Details Comments Source Future Scheduled 2021-06-08 INFLUENZA VACCINE [facility] - Test 00:00:00 (Season Ended) [code Medical [...] s - Test 00:00:00 (procedure) [code = [facility] 87936930] Future Scheduled 1981 DTAP/TDAP/TD VACCINES [facility] I [...] Medica l Center colon (procedure) [code = 957453831] Results Test Description Test Time Test Comments Results Result Comments Source T4, FREE 2019-10-24 10:35:00 Test Item Value Reference Range Interpretation Comme nts FREE T4 (BEAKER) (test code = 655) 0.87 ng/dL 0.70-1.48 Entertainment Centre Manager ID - NTPBASIC METABOLIC [id number] 07:35:00 Test Item Value Reference Range Interpretation [...] S NOT APPLICABLE FOR DIALYSIS PATIEN TS. Entertainment Centre Manager ID - MARY LOU WCBC (HEMOGRAM [...] (BEAKER) (test code = 413) BASIC METABOLIC [id number] 07:15:00 Test Item Value Reference Range Interpretation [...] S NOT APPLICABLE FOR DIALYSIS PATIEN TS. Entertainment Centre Manager ID - PIAYA LCBC (HEMOGRAM ONLY)2019-10-23 [...] (BEAKER) (test code = 413) BASIC METABOLIC [id number] 06:21:00 Test Item Value Reference Range Interpretation [...] S NOT APPLICABLE FOR DIALYSIS PATIEN TS. Entertainment Centre Manager ID - SHANE MCBC (HEMOGRAM ONLY)2019-10-19 [...] WBC 0-0 (BEAKER) (test code = 413) [id number] 15:31:00 Test Item Value Reference Range Interpretation Comments T3 TOTAL (BEAKER) (test code = 656) < ng/dL 48-159 L T3, [id number] 15:31:00 Test Item Value Reference Range Interpretation Comments T3 FREE (BEAKER) (test code = 908) < pg/mL 1.71-3.71 L T4, [id number] 06:48:00 Test Item Value Reference Range Interpretation Comments FREE T4 (BEAKER) (test code = 655) 0.44 ng/dL 0.70-1.48 L [id number] 08:21:00 Test Item Value Reference Range Interpretation Comments MAGNESIUM (BEAKER) (test code = 2.4 mg/dL 1.6-2.6 627) BASIC METABOLIC [id number] 08:21:00 Test Item Value Reference Range Interpretation [...] PATIEN TS. CBC W/PLT COUNT & AUTO [id number] 08:20:00 Test Item Value Reference Range Interpretation [...] PERCENT (BEAKER) (test code = 2801) T4, [id number] 12:06:00 Test Item Value Reference Range Interpretation Comments FREE T4 (BEAKER) (test code = 655) 0.59 ng/dL 0.70-1.48 L Both TSH and donkI6UQY/FREE T4 IF [id number] 11:53:00 Test Item Value Reference Range Interpretation Comments THYROID STIMULATING HORMONE 24.61 uIU/mL 0.35-4.94 H (BEAKER) (test code = 772) Both TSH and [id number] 10:52:00 Test Item Value Reference Range Interpretation Comments MAGNESIUM (BEAKER) (test code = 2.0 mg/dL 1.6-2.6 627) BASIC METABOLIC [id number] 10:52:00 Test Item Value Reference Range Interpretation [...] PATIEN TS. CBC W/PLT COUNT & AUTO [id number] 10:34:00 Test Item Value Reference Range Interpretation [...] 0-1 PERCENT (BEAKER) (test code = 2801) [id number] 05:37:00 Test Item Value Reference Range Interpretation Comments MAGNESIUM (BEAKER) (test code = 2.4 mg/dL 1.6-2.6 627) BASIC METABOLIC [id number] 05:37:00 Test Item Value Reference Range Interpretation [...] PATIEN TS. CBC W/PLT COUNT & AUTO [id number] 05:00:00 Test Item Value Reference Range Interpretation [...] PERCENT (BEAKER) (test code = 2801) T4, [id number] 05:48:00 Test Item Value Reference Range Interpretation Comments FREE T4 (BEAKER) (test code = 655) 0.41 ng/dL 0.70-1.48 L CBC W/PLT COUNT & AUTO [id number] 05:27:00 Test Item Value Reference Range Interpretation [...] (BEAKER) (test code = 2801) BASIC METABOLIC [id number] 05:25:00 Test Item Value Reference Range Interpretation [...] S NOT APPLICABLE FOR DIALYSIS PATIEN TS. [id number] 05:23:00 Test Item Value Reference Range Interpretation Comments MAGNESIUM (BEAKER) (test code = 2.6 mg/dL 1.6-2.6 627) T4, [id number] 04:15:00 Test Item Value Reference Range Interpretation Comments FREE T4 (BEAKER) (test code = 655) < ng/dL 0.70-1.48 L BASIC METABOLIC [id number] 03:58:00 Test Item Value Reference Range Interpretation [...] S NOT APPLICABLE FOR DIALYSIS PATIEN TS. [id number] 03:54:00 Test Item Value Reference Range Interpretation Comments MAGNESIUM (BEAKER) 1.9 mg/dL 1.6-2.6 Specimen slightly (test code = 627) hemolyzed [id number] 03:54:00 Test Item Value Reference Range Interpretation Comments PHOSPHORUS (BEAKER) 2.0 mg/dL 2.3-4.7 L Specimen slightly (test code = 604) hemolyzed CBC W/PLT COUNT & AUTO [id number] 03:39:00 Test Item Value Reference Range Interpretation [...] = 2801) CBC W/PLT COUNT & AUTO [id number] 05:19:00 Test Item Value Reference Range Interpretation [...] PERCENT (BEAKER) (test code = 2801) T4, [id number] 04:48:00 Test Item Value Reference Range Interpretation Comments FREE T4 (BEAKER) (test code = 655) < ng/dL 0.70-1.48 L TROPONIN [id number] 04:06:00 Test Item Value Reference Range Interpretation [...] acute neurological disease, and persistent tachyarrhythmia.BASIC METABOLIC [id number] 04:01:00 Test Item Value Reference Range Interpretation [...] S NOT APPLICABLE FOR DIALYSIS PATIEN TS. [id number] 03:59:00 Test Item Value Reference Range Interpretation Comments MAGNESIUM (BEAKER) 1.9 mg/dL 1.6-2.6 Specimen slightly (test code = 627) hemolyzed [id number] 03:59:00 Test Item Value Reference Range Interpretation Comments PHOSPHORUS (BEAKER) 2.6 mg/dL 2.3-4.7 Specimen slightly (test code = 604) hemolyzed CORTISOL,60 [id number] 19:46:00 Test Item Value Reference Range Interpretation [...] serum cortisollevel 60 minutes after cosyntropin administration.CORTISOL,30 [id number] 19:09:00 Test Item Value Reference Range Interpretation [...] Draw serum cortisollevel 60 minutes after cosyntropin administration.CORTISOL,[id number] 18:14:00 Test Item Value Reference Range Interpretation [...] Draw serum cortisollevel 60 minutes after cosyntropin administration.[id number] 17:11:00 Test Item Value Reference Range Interpretation Comments CORTISOL, TOTAL (BEAKER) (test 19.8 ug/dL 3.7-19.4 H code = 2755) TROPONIN [id number] 16:56:00 Test Item Value Reference Range Interpretation [...] acidosis, acute neurological disease, and persistent tachyarrhythmia.TROPONIN [id number] 05:54:00 Test Item Value Reference Range Interpretation [...] = 700) CBC W/PLT COUNT & AUTO [id number] 05:06:00 Test Item Value Reference Range Interpretation [...] (BEAKER) (test code = 2801) BASIC METABOLIC [id number] 01:41:00 Test Item Value Reference Range Interpretation [...] NOT APPLICABLE FOR DIALYSIS PATIEN TS. TROPONIN [id number] 01:35:00 Test Item Value Reference Range Interpretation [...] failure, acidosis, acute neurological disease, and persistent tachyarrhythmia.[id number] 01:28:00 Test Item Value Reference Range Interpretation Comments MAGNESIUM (BEAKER) 1.9 mg/dL 1.6-2.6 Specimen slightly (test code = 627) hemolyzed [id number] 01:28:00 Test Item Value Reference Range Interpretation Comments PHOSPHORUS (BEAKER) 1.9 mg/dL 2.3-4.7 L Specimen slightly (test code = 604) hemolyzed RAD, CHEST, 1 VIEW, NON [id number] 23:26:00Reason for exam:->pericardial effusion, HFrEFShould this be [...] [place] MDReport Verified Date/Time: 10/08/2019 23:26:01 T4, [id number] 17:29:00 Test Item Value Reference Range Interpretation Comments FREE T4 (BEAKER) (test code = 655) < ng/dL 0.70-1.48 L TSH/FREE T4 IF [id number] 16:54:00 Test Item Value Reference Range Interpretation Comments THYROID STIMULATING HORMONE 30.58 uIU/mL 0.35-4.94 H (BEAKER) (test code = 772) TROPONIN [id number] 16:38:00 Test Item Value Reference Range Interpretation [...] failure, acidosis, acute neurological disease, and persistent tachyarrhythmia.[id number] 16:32:00 Test Item Value Reference Range Interpretation Comments MAGNESIUM (BEAKER) (test code = 2.3 mg/dL 1.6-2.6 627) BASIC METABOLIC [id number] 16:32:00 Test Item Value Reference Range Interpretation [...] APPLICABLE FOR DIALYSIS PATIEN TS. HEPATIC FUNCTION [id number] 16:32:00 Test Item Value Reference Range Interpretation [...] 6-55 347) CBC W/PLT COUNT & AUTO [id number] 16:13:00 Test Item Value Reference Range Interpretation [...]
[2021-05-12] MEDS ORDERED: LIDOCAINE 1% 20 ML MDV ONE (04:30)
--- NOTE | 2021-05-12 05:12 | ER ---
Nurse's Notes [facility] Name: Cristopher Dee Age: 60 yrs Sex: Male : 1960 Arrival Date: 05/12/2021 Time: 03:47 Bed 12 Private MD: Diagnosis: Laceration right forearm Presentation: 05/12 03:49 Chief complaint: EMS states: Pt had been reporting generalized weakness. He fell about jb4 45 minutes prior to arrival to the ED. He has a large laceration to the right arm and has had no LOC. Pt fell into a filing cabinet. Coronavirus screen: Client denies travel out of the [place] in the last 14 days. At this time, the client does not indicate any symptoms associated with coronavirus-19. Ebola Screen: No symptoms or risks identified at this time. Initial Sepsis Screen: Does the patient meet any 2 criteria? No. Patient's initial sepsis screen is negative. Does the patient have a suspected source of infection? No. Patient's initial sepsis screen is negative. Risk Assessment: Do you want to hurt yourself or someone else? Patient reports no desire to harm self or others. Onset of symptoms was May 12, 2021 at 03:53. 03:49 Method Of Arrival: EMS: [facility] jb4 03:49 Acuity: [facility] 3 jb4 Historical: - Allergies: 03:53 No Known Allergies; jb4 - Home Meds: 03:53 None [Active]; jb4 - PMHx: 03:53 Depression; Hypertension; Thyroid problem; jb4 - Immunization history:: Adult Immunizations unknown, Client reports having NOT received the Covid vaccine. - Social history:: Smoking status: Patient denies any tobacco usage or history of. Patient/guardian denies using alcohol, street drugs. Screenin:27 Abuse screen: Denies threats or abuse. Nutritional screening: No deficits noted. jb4 Tuberculosis screening: No symptoms or risk factors identified. Fall Risk Fall in past 12 months (25 points). Gait- Weak (10 pts.). Total [place] Fall Scale indicates No Risk (0-24 pts). Assessment: 03:27 General: Appears in no apparent distress. comfortable, Behavior is calm, cooperative, jb4 appropriate for age. Pain: Denies pain. Neuro: Level of Consciousness is awake, alert, obeys commands, Oriented to person, place, time, situation. Cardiovascular: Patient's skin is warm and dry. Respiratory: Airway is patent Respiratory effort is even, unlabored, Respiratory pattern is regular, symmetrical. GI: No signs and/or symptoms were reported involving the gastrointestinal system. : No signs and/or symptoms were reported regarding the genitourinary system. EENT: No signs and/or symptoms were reported regarding the EENT system. Derm: Skin is pink, warm \T\ dry. Musculoskeletal: Circulation, motion, and sensation intact. Range of motion: intact in all extremities. 04:15 Reassessment: Patient appears in no apparent distress at this time. Patient and/or jb4 family updated on plan of care and expected duration. Pain level reassessed. Patient is alert, oriented x 3, equal unlabored respirations, skin warm/dry/pink. Pulsitile bleeding noted at laceration site. Provider notified, set up for laceration repair. 05:30 Reassessment: Patient appears in no apparent distress at this time. Patient and/or jb4 family updated on plan of care and expected duration. Pain level reassessed. Patient is alert, oriented x 3, equal unlabored respirations, skin warm/dry/pink. 05:59 Reassessment: Patient appears in no apparent distress at this time. Patient and/or jb4 family updated on plan of care and expected duration. Pain level reassessed. Patient is alert, oriented x 3, equal unlabored respirations, skin warm/dry/pink. Pt and father verbalized understanding of d/c and follow up instructions as well as the need to take prescribed medications as instructed by the provider writing them. Father and pt verbalized [facility]. Pt assisted to fathers vehicle via wheelchair. Vital Signs: 03:49 BP 127 / 70; Pulse 83; Resp 16; Temp 98.4; Pulse Ox 100% on R/A; Weight 61.23 kg (R); jb4 Height 5 ft. 8 in. (172.72 cm) (R); Pain 6/10; 04:30 BP 134 / 96; Pulse 82; Resp 16; Pulse Ox 99% on R/A; jb4 05:30 BP 130 / 100; Pulse 88; Resp 18; Pulse Ox 97% on R/A; jb4 03:49 Body Mass Index 20.53 (61.23 kg, 172.72 cm) jb4 ED Course: 03:27 Patient has correct armband on for positive identification. Bed in low position. Call jb4 light in reach. Side rails up X 1. Pulse ox on. NIBP on. Sitter at bedside. 03:47 Patient arrived in ED. mw2 03:47 Terence Polanco MD is Attending Physician. pkl 03:49 Zachary Lee, RN is Primary Nurse. jb4 03:53 Triage completed. jb4 03:57 Arm band placed on right wrist. jb4 04:37 Assist provider with laceration repair on dorsal aspect of right forearm that was jb4 between 12.6 to 20 cm using sutures. Set up tray. Performed by Terence Polanco MD. 04:44 Sling applied to right arm. oe 05:59 Patient did not have IV access during this emergency room visit. 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 Exp: jb4 01/06/2023. Lot #: [id number]. } Route: IM; Site: left deltoid; Outcome: 05:11 Discharge ordered by . pk 05:59 Discharged to home via wheelchair, with family. jb4 05:59 Condition: stable 05:59 Discharge instructions given to patient, family, Instructed on discharge instructions, follow up and referral plans. Demonstrated understanding of instructions, follow-up care. 06:04 Patient left the ED. jb4 Signatures: Terence Polanco MD MD pkl Bryson, James, RN RN jb4 Van Gonzalez MyKena mw2 Corrections: (The following items were deleted from the chart) 04:15 03:49 Chief complaint: EMS states: Pt had been reporting generalized weakness. He fell jb4 about 45 minutes prior to arrival to the ED. He has a large laceration to the right arm and has had no LOC. jb4
--- NOTE | 2021-05-12 05:12 | EDPHYS ---
Physician Documentation [facility] Name: Cristopher Dee Age: 60 yrs Sex: Male : 1960 Arrival Date: 05/12/2021 Time: 03:47 Bed 12 Private MD: ED Physician Terence Polanco HPI: 05/12 05:02 This 60 yrs old Black Male presents to ER via EMS with unknown complaint. pkl 05:02 The patient or guardian complains of injury, a laceration, 10 cm(s). The complaints pkl affect the right forearm. Historical: - Allergies: 03:53 No Known Allergies; jb4 - Home Meds: 03:53 None [Active]; jb4 - PMHx: 03:53 Depression; Hypertension; Thyroid problem; jb4 - Immunization history:: Adult Immunizations unknown, Client reports having NOT received the Covid vaccine. - Social history:: Smoking status: Patient denies any tobacco usage or history of. Patient/guardian denies using alcohol, street drugs. ROS: 05:04 Eyes: Negative for injury, pain, redness, and discharge, ENT: Negative for injury, pkl pain, and discharge, Neck: Negative for injury, pain, and swelling, Cardiovascular: Negative for chest pain, palpitations, and edema, Respiratory: Negative for shortness of breath, cough, wheezing, and pleuritic chest pain, Abdomen/GI: Negative for abdominal pain, nausea, vomiting, diarrhea, and constipation, Back: Negative for injury and pain, : Negative for injury, bleeding, discharge, and swelling, Neuro: Negative for headache, weakness, numbness, tingling, and seizure. 05:04 MS/extremity: Positive for laceration, of the right forearm. Exam: 05:04 Head/Face: Normocephalic, atraumatic. Eyes: Pupils equal round and reactive to light, pkl extra-ocular motions intact. Lids and lashes normal. Conjunctiva and sclera are non-icteric and not injected. Cornea within normal limits. Periorbital areas with no swelling, redness, or edema. ENT: Nares patent. No nasal discharge, no septal abnormalities noted. Tympanic membranes are normal and external auditory canals are clear. Oropharynx with no redness, swelling, or masses, exudates, or evidence of obstruction, uvula midline. Mucous membranes moist. Neck: Trachea midline, no thyromegaly or masses palpated, and no cervical lymphadenopathy. Supple, full range of motion without nuchal rigidity, or vertebral point tenderness. No Meningismus. Chest/axilla: Normal chest wall appearance and motion. Nontender with no deformity. No lesions are appreciated. Cardiovascular: Regular rate and rhythm with a normal S1 and S2. No gallops, murmurs, or rubs. Normal PMI, no JVD. No pulse deficits. Respiratory: Lungs have equal breath sounds bilaterally, clear to auscultation and percussion. No rales, rhonchi or wheezes noted. No increased work of breathing, no retractions or nasal flaring. Abdomen/GI: Soft, non-tender, with normal bowel sounds. No distension or tympany. No guarding or rebound. No evidence of tenderness throughout. Back: No spinal tenderness. No costovertebral tenderness. Full range of motion. Neuro: Awake and alert, GCS 15, oriented to person, place, time, and situation. Cranial nerves II-XII grossly intact. Motor strength 5/5 in all extremities. Sensory grossly intact. Cerebellar exam normal. Normal gait. 05:04 Musculoskeletal/extremity: Extremities: grossly normal except: noted in the right forearm: laceration. Vital Signs: 03:49 BP 127 / 70; Pulse 83; Resp 16; Temp 98.4; Pulse Ox 100% on R/A; Weight 61.23 kg (R); jb4 Height 5 ft. 8 in. (172.72 cm) (R); Pain 6/10; 04:30 BP 134 / 96; Pulse 82; Resp 16; Pulse Ox 99% on R/A; jb4 05:30 BP 130 / 100; Pulse 88; Resp 18; Pulse Ox 97% on R/A; jb4 03:49 Body Mass Index 20.53 (61.23 kg, 172.72 cm) jb4 Laceration: 05:04 Wound Repair of 10cm ( 3.9in ) subcutaneous laceration to right forearm. Minimal pkl bleeding noted.. Distal neuro/vascular/tendon intact. Anesthesia: Local anesthetic administered with 10 mls of 1% lidocaine. Wound prep: Extensive cleansing by me. Skin closed with 10 4-0 Prolene using simple sutures and sterile technique. Dressed with 4x4's, pressure dressing. Patient tolerated well. MDM: 03:47 Patient medically screened. 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 Exp: jb4 01/06/2023. Lot #: [id number]. } Route: IM; Site: left deltoid; Disposition Summary: 05/12/21 05:11 Discharge Ordered Location: Home pkl Problem: new pkl Symptoms: have improved pkl Condition: Stable pkl Diagnosis - Laceration right forearm pkl Followup: pkl - With: Private Physician - When: 1 week - Reason: Wound Recheck, Staple/Suture removal, Re-evaluation by your physician Forms: - Medication Reconciliation Form pkl - Thank You Letter pkl - Antibiotic Education pkl - Prescription Opioid Use pkl Signatures: Terence Polanco MD MD pkl Zachary Lee, RN RN jb4
[2021-05-12] MEDS ORDERED: TETANUS & DIPHTHERIA TOX,ADULT 0.5 ML VIAL ONE (05:45)
[2021-05-12 06:08] VITALS: TEMP 98.4
[2021-05-12 06:12] VITALS: BP 130/100; O2SAT 97
== END 2021-05-12 06:04 | disposition home or self-care (01) ==
LOC: ER 03:28
PROC: 0JQG0ZZ Repair Right Lower Arm Subcutaneous Tissue and Fascia, Open Approach (ICD-10-PCS; principal; 2021-05-12)
DX: S51.811A Laceration without foreign body of right forearm, initial encounter (principal); W01.198A Fall on same level from slipping, tripping and stumbling with subsequent striking against other object, initial encounter; Z23 Encounter for immunization
CPT/HCPCS: 90471; 90714; 99285